=== PATIENT | male | born 1935 | race Caucasian/White ===

== ENCOUNTER → 2017-03-25 | Outpatient (CLI) | payer MEDICARE, OTHER ==
[2017-03-28 00:06] LABS: IgG P18 AB Absent (.); IgG P23 AB Absent (.); IgG P28 AB Absent (.); IgG P30 AB Absent (.); IgG P41 AB Present (.); IgG P45 AB Absent (.); IgG P58 AB Present (.); IgG P66 AB Present (.); IgG P93 AB Absent (.); IgM P39 AB Absent (.); IgM P41 AB Absent (.)
== END ==
LOC: M WUC 10:59
PROVIDERS: ATTEND Nurse Practitioner Family
DX: A69.20 Lyme disease, unspecified (principal)

== ENCOUNTER → 2018-04-22 | Outpatient (REF) | payer MEDICARE, OTHER ==
[2018-04-24 00:06] LABS: Lyme Disease IgG/IgM Antibodie <0.91 ISR (0.00-0.90); Lyme Disease IgM Ab Quantitati <0.80 index (0.00-0.79)
== END ==
LOC: M LAB REF 13:54
DX: M25.569 Pain in unspecified knee (principal)

== ENCOUNTER → 2018-04-22 | Outpatient (CLI) | payer MEDICARE, OTHER | LOC: M RAD 09:26 | DX: M16.10 Unilateral primary osteoarthritis, unspecified hip (principal); M17.0 Bilateral primary osteoarthritis of knee; M25.761 Osteophyte, right knee; M25.762 Osteophyte, left knee; M25.551 Pain in right hip; M25.552 Pain in left hip; M25.561 Pain in right knee; M25.562 Pain in left knee | CPT/HCPCS: 73564 ==

== ENCOUNTER → 2018-08-10 | Outpatient (CLI) | payer MEDICARE, OTHER ==
--- NOTE | 2018-08-10 11:36 | REP ---
Chest two views HISTORY: Pneumonia Comparison: 07/07/2016 An increase in interstitial markings is present in the lungs consistent with chronic interstitial fibrosis. Patchy density is present in the right lower lobe consistent with atelectasis or infiltrate. The heart is normal in size. The pulmonary vasculature is normal in appearance. The bony structure is intact. IMPRESSION: 1. Chronic interstitial fibrosis. 2. Right lower lobe atelectasis or infiltrate. Electronically Signed by Angel Luis Castellanos MD 08/10/2018 11:28 A
== END ==
LOC: M WUC 11:08
PROVIDERS: ATTEND Nurse Practitioner Family
DX: J84.10 Pulmonary fibrosis, unspecified (principal); J98.11 Atelectasis

== ENCOUNTER → 2018-09-14 | Outpatient (CLI) | payer MEDICARE, OTHER ==
--- NOTE | 2018-09-14 10:53 | REP ---
Chest two views HISTORY: Pneumonia Comparison: 08/10/2018 An increase in interstitial markings is present in the lungs consistent with chronic interstitial fibrosis. Patchy density is present in the right lower lobe consistent with an infiltrate that appears unchanged compared to the previous study. The heart is normal in size. The pulmonary vasculature is normal in appearance. The bony structure is intact. IMPRESSION: 1. Chronic interstitial fibrosis. 2. Right lower lobe infiltrate unchanged compared to the previous study. Electronically Signed by Angel Luis Castellanos MD 09/14/2018 10:44 A
== END ==
LOC: M WUC 10:22
PROVIDERS: ATTEND Nurse Practitioner Family
DX: J18.9 Pneumonia, unspecified organism (principal)

== ENCOUNTER → 2018-10-25 | Outpatient (REF) | payer MEDICARE, OTHER ==
[2018-10-25 13:31] LABS: BASO # 0.1 10^3/uL (0.0-0.2); BASO % 0.9 % (0.0-1.0); EOS # 0.3 10^3/uL (0.0-0.50); EOS % 4.7 % (0.0-3.0); HEMATOCRIT 46.8 % (42.0-52.0); HEMOGLOBIN 15.5 g/dl (13.5-17.5); LYMPH # 1.4 10^3/uL (1.5-4.5); LYMPH % 21.1 % (24.0-44.0); MEAN CORPUSCULAR HEMOGLOBIN 33.8 pg (27.0-33.0); MEAN CORPUSCULAR HGB CONC 33.1 g/dl (32.0-36.5); MEAN CORPUSCULAR VOLUME 102.2 fl (80.0-96.0); MONO # 0.6 10^3/uL (0.0-0.8); MONO % 9.2 % (0.0-5.0); NEUTROPHILS # 4.4 10^3/uL (1.8-7.7); NEUTROPHILS % 63.8 % (36.0-66.0); PLATELET COUNT, AUTOMATED 231 10^3/uL (150-450); RED BLOOD COUNT 4.58 10^6/uL (4.30-6.10); WHITE BLOOD COUNT 6.8 10^3/uL (4.0-10.0)
[2018-10-25 13:52] LABS: C REACTIVE PROTEIN QUANTITATIV < 0.30 MG/DL (0.00-0.30); RHEUMATOID FACTOR QUANT < 10.0 IU/ML (<15.0)
[2018-10-25 15:06] LABS: ERYTHROCYTE SEDIMENTATION RATE 9 mm/hr (0-20)
[2018-10-28 00:06] LABS: ANCA-ATYPICAL <1:20 titer (Neg:<1:20); ANTI-GLOMERULAR BASEMENT MEMB 6 units (0-20); ANTINUCLEAR ANTIBODIES DIRECT Negative (Negative); CHLAMYDIA PNEUMONIAE IgM <1:10 (Neg:<1:10); CYTOPLASMIC NEUTROP AB ANCA-C <1:20 titer (Neg:<1:20); MYCOPLASMA PNEUMONIAE IgG 147 U/mL (0-99); MYCOPLASMA PNEUMONIAE IgM <770 U/mL (0-769); PERINUCLEAR AB ANCA-P <1:20 titer (Neg:<1:20); SJOGREN'S ANTI SS-A <0.2 AI (0.0-0.9); SJOGREN'S ANTI SS-B <0.2 AI (0.0-0.9)
== END ==
LOC: M LAB REF 12:42
PROVIDERS: ATTEND Internal Medicine Pulmonary Disease
DX: R91.8 Other nonspecific abnormal finding of lung field (principal)

== ENCOUNTER → 2018-11-22 | Outpatient (CLI) | payer MEDICARE, OTHER ==
[2018-11-22 13:28] LABS: BLOOD UREA NITROGEN 24 MG/DL (7-18); CREATININE FOR GFR 1.21 MG/DL (0.70-1.30); GLOMERULAR FILTRATION RATE > 60.0 (>35)
== END ==
LOC: M SMT 09:20
PROVIDERS: ATTEND Internal Medicine Pulmonary Disease
DX: J15.7 Pneumonia due to Mycoplasma pneumoniae (principal)

== ENCOUNTER 2018-12-16 01:18 | Emergency (ER) | payer MEDICARE, OTHER ==
[~2018-12-16] VITALS: Ht 177.8 cm; Wt 94.5 kg
[2018-12-16] MEDS ORDERED: ONDANSETRON 4MG/2ML VIAL (J2405) IV ONE ×2 (01:45→05:30)
[2018-12-16] MEDS ORDERED: ASPIRIN 81 MG CHEW TABLET PO ONE (02:15)
[2018-12-16 02:27] LABS: BASO # 0.1 10^3/uL (0.0-0.2); BASO % 0.7 % (0.0-1.0); EOS # 0.5 10^3/uL (0.0-0.50); EOS % 6.1 % (0.0-3.0); HEMATOCRIT 43.3 % (42.0-52.0); HEMOGLOBIN 14.5 g/dl (13.5-17.5); LYMPH # 1.4 10^3/uL (1.5-4.5); LYMPH % 18.7 % (24.0-44.0); MEAN CORPUSCULAR HEMOGLOBIN 34.3 pg (27.0-33.0); MEAN CORPUSCULAR HGB CONC 33.5 g/dl (32.0-36.5); MEAN CORPUSCULAR VOLUME 102.4 fl (80.0-96.0); MONO # 0.7 10^3/uL (0.0-0.8); MONO % 9.3 % (0.0-5.0); NEUTROPHILS # 4.8 10^3/uL (1.8-7.7); NEUTROPHILS % 64.9 % (36.0-66.0); PLATELET COUNT, AUTOMATED 188 10^3/uL (150-450); RED BLOOD COUNT 4.23 10^6/uL (4.30-6.10); WHITE BLOOD COUNT 7.4 10^3/uL (4.0-10.0)
[2018-12-16 02:53] LABS: ALBUMIN 3.3 GM/DL (3.2-5.2); ALT/SGPT 23 U/L (12-78); BILIRUBIN,DIRECT < 0.1 MG/DL (0.0-0.2); BILIRUBIN,TOTAL 0.4 MG/DL (0.2-1.0); BLOOD UREA NITROGEN 28 MG/DL (7-18); CALCIUM LEVEL 8.5 MG/DL (8.8-10.2); CARBON DIOXIDE LEVEL 25 MEQ/L (21-32); CHLORIDE LEVEL 106 MEQ/L (98-107); CPK CREATINE PHOSPHOKINASE 174 U/L (39-308); CREATININE FOR GFR 1.24 MG/DL (0.70-1.30); GLOMERULAR FILTRATION RATE 59.3 (>35); GLUCOSE, FASTING 110 MG/DL (70-100); LIPASE 100 U/L (73-393); MB/CK RELATIVE INDEX 2.82 (< OR =4); POTASSIUM SERUM 4.1 MEQ/L (3.5-5.1); SODIUM LEVEL 140 MEQ/L (136-145); TOTAL PROTEIN 7.1 GM/DL (6.4-8.2); TROPONIN I < 0.02 NG/ML (< 0.10)
--- NOTE | 2018-12-16 03:25 | REPVR ---
EXAM: CT Head Without Contrast EXAM DATE/TIME: 12/16/18 (1:44am) CLINICAL HISTORY: 83 year old male with dizziness TECHNIQUE: Imaging protocol: Axial computed tomography images of the head without contrast. Radiation optimization: All CT scans at this facility use at least one of these dose optimization techniques: automated exposure control; mA and/or kV adjustment per patient size (includes targeted exams where dose is matched to clinical indication); or iterative reconstruction. COMPARISON: No relevant prior studies available FINDINGS: Brain: No acute hemorrhage. No cerebral edema. Age-appropriate atrophic changes are noted. Periventricular and subcortical areas of low attenuation, compatible with small vessel microischemic changes. Ventricles: Normal. No ventriculomegaly. Bones/joints: Unremarkable. No acute fracture. Sinuses: Visualized sinuses are unremarkable. No fluid levels. Mastoid air cells: Visualized mastoid air cells are well aerated. No mastoid effusion. Soft tissues: Unremarkable. IMPRESSION: No acute intracranial pathology is appreciated. Chronic atrophic and microischemic changes are noted. Electronically signed by: Radha Reno On 12/16/2018 03:25:19 AM
--- NOTE | 2018-12-16 07:15 | REPVR ---
EXAM: MR Head Without Contrast EXAM DATE/TIME: 12/16/2018 6:12 AM CLINICAL HISTORY: 83 years old, male; Signs and symptoms; Dizziness and other: Headache and difficulty breathing; Patient HX: PT states around midnight had all of a sudden headache with dizziness and difficulty breathing; Additional info: Cerebellar CVA TECHNIQUE: Imaging protocol: MR of the head without contrast. COMPARISON: CT Head without contrast 12/16/2018 1:54 AM FINDINGS: Brain: There is moderate high signal abnormality in the periventricular white matter and centrum semiovale, best seen on the flair images. These changes are nonspecific but likely represent chronic small vessel ischemic change. Ventricles: Normal. No ventriculomegaly. Bones/joints: Unremarkable. Soft tissues: Normal. Sinuses: Normal as visualized. No acute sinusitis. Mastoid air cells: Normal as visualized. No mastoid effusion. Orbits: Unremarkable. IMPRESSION: No acute intracranial abnormality identified. Please refer to incidental findings in body of report. Electronically signed by: Willem Peck On 12/16/2018 07:15:15 AM
--- NOTE | 2018-12-16 07:17 | REPVR ---
EXAM: MR Angiogram Head Without Contrast, Arteries EXAM DATE/TIME: 12/16/2018 6:12 AM CLINICAL HISTORY: 83 years old, male; Signs and symptoms; Dizziness and giddiness and headache and other: Difficulty breathing; Patient HX: PT states around midnight had all of a sudden headache with dizziness and difficulty breathing; Additional info: Cerebellar CVA TECHNIQUE: Imaging protocol: MR angiogram head without contrast. Exam focused on the arteries. 3D rendering: MIP reconstructed images were created and reviewed. COMPARISON: CT Head without contrast 12/16/2018 1:54 AM FINDINGS: Right internal carotid artery: Unremarkable. Intracranial segment is patent with no significant stenosis. No aneurysm. Right anterior cerebral artery: Unremarkable. No occlusion or significant stenosis. No aneurysm. Right middle cerebral artery: Unremarkable. No occlusion or significant stenosis. No aneurysm. Right posterior cerebral artery: Unremarkable. No occlusion or significant stenosis. No aneurysm. Right vertebral artery: Unremarkable. No occlusion or significant stenosis. No aneurysm. Left internal carotid artery: Unremarkable. Intracranial segment is patent with no significant stenosis. No aneurysm. Left anterior cerebral artery: Unremarkable. No occlusion or significant stenosis. No aneurysm. Left middle cerebral artery: Unremarkable. No occlusion or significant stenosis. No aneurysm. Left posterior cerebral artery: Unremarkable. No occlusion or significant stenosis. No aneurysm. Left vertebral artery: The patient is left vertebral artery dominant. Basilar artery: Unremarkable. No occlusion or significant stenosis. No aneurysm. IMPRESSION: No acute abnormality is identified. Please review incidental findings contained in body of report. Electronically signed by: Willem Peck On 12/16/2018 07:17:27 AM
--- NOTE | 2018-12-16 07:55 | REP ---
Clinical: Chest pain. Comparison: 09/14/2018. Findings: Diffuse bilateral mid to lower lobe infiltrates are suggested. Small associated pleural effusion cannot be excluded. No pneumothorax. Underlying cardiomegaly and chronic changes again noted. Impression: Multifocal infiltrates suggest pneumonia. Electronically Signed by Sanjay Grider MD 12/16/2018 07:47 A
[2018-12-16 09:09] LABS: MB/CK RELATIVE INDEX 2.93 (< OR =4); TROPONIN I 0.02 NG/ML (< 0.10)
[2018-12-16 09:53] VITALS: BP 112/62; O2SAT 91
--- NOTE | 2018-12-16 13:39 | ED PDOC ---
Post-Departure Follow-Up dr case faxed formal report of cxr for fu rileyg Mayank Cabello MD December 16, 2018 13:39
--- NOTE | 2018-12-16 20:20 | ECGEPIP ---
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
--- NOTE | 2018-12-16 20:44 | ECGEPIP ---
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
== END 2018-12-16 10:04 | disposition home or self-care (01) ==
LOC: M ED 01:18
DX: R42 Dizziness and giddiness (principal); I10 Essential (primary) hypertension; G47.33 Obstructive sleep apnea (adult) (pediatric); C61 Malignant neoplasm of prostate; Z88.2 Allergy status to sulfonamides; Z88.8 Allergy status to other drugs, medicaments and biological substances
CPT/HCPCS: 70450; 70544; 70551; 71045; 80048; 80076; 82550; 82553; 83690; 84484; 85025; 93005; 93041; 94760; 96374; 96375; 99285; J2405

== ENCOUNTER → 2019-02-01 | Outpatient (CLI) | payer MEDICARE, OTHER ==
--- NOTE | 2019-02-01 17:52 | REP ---
Chest x-ray: Two views. History: Bronchiectasis. Comparison chest x-ray: December 16, 2018. Findings: There is coarse linear fibrosis in the right perihilar region. The lungs are exposed at a lower level of inspiration, unchanged. There is diffuse interstitial fibrosis pattern in the lung gonzales bilaterally. No other focal pulmonary opacity is seen. The pleural angles are sharp. Heart and mediastinal contours are unchanged. Impression: Diffuse interstitial fibrosis pattern. Coarse linear fibrosis right mid lung zone. No focal infiltrate seen. Electronically Signed by Bimal Cunha MD 02/01/2019 07:29 P
== END ==
LOC: M SMT 09:43
PROVIDERS: ATTEND Internal Medicine Pulmonary Disease
DX: J47.9 Bronchiectasis, uncomplicated (principal)

== ENCOUNTER → 2019-06-27 | Outpatient (CLI) | payer MEDICARE, OTHER ==
[~2019-06-27] MED LIST: ALFU10TA2 PO; AVAP150T31 PO; ISOVUE-370 76% 100ML VIAL (Q9967) As Ordered ONE; NAPR250T4 PO
--- NOTE | 2019-06-27 16:23 | REP ---
CT neck soft tissues: 06/27/2019. Indication: Neck mass. Comparison: None. Technique: Axial CT images of the neck soft tissues were obtained following the administration of 75 ml IV Isovue 370. Coronal and sagittal reconstructions were provided. Findings: The right lingular tonsil is mildly prominent without focal abnormal enhancement. No additional abnormal solid soft tissue masses are present. There is no abnormal fluid collection within the neck soft tissues. There is no evidence of cervical lymphadenopathy. Carotid atherosclerotic disease is present without high-grade stenosis detected. The visualized lungs are clear. Impression: Mildly prominent right lingular tonsil for which direct inspection correlation is recommended. Otherwise, no abnormal solid soft tissue mass, abnormal fluid collection or cervical lymphadenopathy. Electronically Signed by Amadou Ruiz DO 06/27/2019 04:14 P
== END ==
LOC: M RAD 14:21
PROVIDERS: ATTEND Otolaryngology
DX: D38.0 Neoplasm of uncertain behavior of larynx (principal)
CPT/HCPCS: 70491; Q9967

== ENCOUNTER 2019-06-28 08:10 | Day surgery (SDC) | payer MEDICARE, OTHER ==
[2019-06-28] VITALS (8 sets, daily range): BP systolic 119–132; BP diastolic 73–79
[~2019-06-28] VITALS: Ht 177.8 cm; Wt 93.8 kg
[~2019-06-28 08:10] MED LIST changes: -ALFU10TA2 PO; +ALFU10TA3 PO; -ISOVUE-370 76% 100ML VIAL (Q9967) As Ordered ONE; +LR 1,000 ML IV ONE; +dexameTHASONE 4 MG/ML 1ML VIAL (J1100) IV ONE
[2019-06-28] MEDS ORDERED: propofoL 200 MG/20 ML VIAL As Ordered ONE ×2 (09:43→09:52)
[2019-06-28] MEDS ORDERED: ROCURONIUM BROMIDE 50 MG/5 ML VIAL As Ordered ONE (09:43)
[2019-06-28] MEDS ORDERED: LIDOCAINE 2% INJ 100 MG/5 ML SDV (FOR ANES.) As Ordered ONE (09:43)
[2019-06-28] MEDS ORDERED: ONDANSETRON 4MG/2ML VIAL (J2405) As Ordered ONE (09:44)
[2019-06-28] MEDS ORDERED: dexameTHASONE 4 MG/ML 1ML VIAL (J1100) As Ordered ONE (09:44)
[2019-06-28] MEDS ORDERED: fentaNYL 100 MCG/2 ML INJECTION (J3010) As Ordered ONE (09:44)
[2019-06-28] MEDS ORDERED: SUGAMMADEX SODIUM 500 MG/5 ML VIAL (BRIDION) As Ordered ONE (09:52)
[2019-06-28] MEDS ORDERED: METHYLENE BLUE 0.5% (5MG/ML) 10 ML AMP (PROVAYBLUE)(Q9968 PER 1MG) As Ordered ONE (10:24)
[2019-06-28] MEDS ORDERED: LIDOCAINE W/EPINEPHRINE 1% 20ML VIAL As Ordered ONE (10:25)
[2019-06-28] MEDS ORDERED: OXYMETAZOLINE NASAL SPRAY (AFRIN) As Ordered ONE (10:25)
[2019-06-28] MEDS ORDERED: GLYCOPYRROLATE INJ 0.2 MG/ML 2 ML VIAL As Ordered ONE (11:01)
[2019-06-28] MEDS ORDERED: ESMOLOL INJ 100MG/10ML VIAL As Ordered ONE (11:10)
[2019-06-28] MEDS ORDERED: RACEPINEPHrine 2.25 % UD INHA As Ordered ONE (11:37)
[2019-06-28] MEDS ORDERED: LR 1,000 ML IV SCH ×2 (12:00→18:00)
[2019-06-28] MEDS ORDERED: oxyCODONE 5MG TAB PO PRN (12:00)
[2019-06-28] MEDS ORDERED: fentaNYL 100 MCG/2 ML INJECTION (J3010) IV PRN (12:00)
[2019-06-28] MEDS ORDERED: ONDANSETRON 4MG/2ML VIAL (J2405) IV PRN (12:00)
[2019-06-28] MEDS ORDERED: RACEPINEPHrine 2.25 % UD INHA INH ONE (12:30)
--- NOTE | 2019-06-28 16:10 | HPEPDOC ---
General Date of Admission 06/28/19 Date of Service: Jun 28, 2019 Chief Complaint The patient is a 84-year-old male admitted with a reason for visit of Left Vocal Cord Lesion. Source: Patient Severity: Mild Associated Symptoms: Shortness of breath History of Present Illness Patient is 84 years old male with past medical history of hypertension, mycoplasma pneumonia, lung fibrosis, prostate cancer presented hospital for vocal cord biopsy due to discovered nodule. After procedure which was done under anesthesia patient developed acute hypoxemic respiratory failure with oxygen saturation in the middle of the 70s. Patient received oxygen via nasal cannula with improvement saturation to 90%. Patient denied fever, chills, nausea, vomiting, palpitations, diarrhea or dysuria. Of note patient was recently diagnosed with lung fibrosis, he is not oxygen dependent. Home Medications Scheduled Alfuzosin HCl (Alfuzosin HCl ER) 10 Mg Tab.er.24h, 1 TAB PO DAILY, (Reported) Irbesartan (Avapro) 150 Mg Tablet, 1 TAB PO DAILY, (Reported) Scheduled PRN Naproxen (Naproxen) 250 Mg Tablet, 1 TAB PO BIDP PRN for pain, (Reported) Allergies Coded Allergies: Sulfa (Sulfonamide Antibiotics) (Verified Allergy, Unknown, 10/21/18) doxycycline (Verified Allergy, Unknown, resp distress, 06/22/19) lisinopril (Verified Allergy, Unknown, 10/21/18) metoprolol (Verified Allergy, Unknown, 10/21/18) tamsulosin (Verified Allergy, Unknown, 10/21/18) Past Medical History Medical History hypertension, mycoplasma pneumonia, lung fibrosis, prostate cancer Family History I personally reviewed family history and found not pertinent Social History * Smoker: Denies Alcohol: Denies Drugs: denies A-FIB/CHADSVASC A-FIB History Current/History of A-Fib/PAF?: No Current PO Anticoag Therapy: No Review of Systems Constitutional: Denies: Chills, Fever Eyes: Denies: Pain, Vision change ENT: Denies: Head Aches Skin: Denies: Rash, Lesions Pulmonary: Reports: Dyspnea Cardiovascular: Denies: Chest Pain, Palpitations Gastrointestinal: Denies: Nausea, Vomiting Genitourinary: Denies: Dysuria, Frequency Hematologic: Denies: Bruising, Bleeding Excessively Endocrine: Denies: Polydipsia Musculoskeletal: Denies: Neck Pain, Back Pain Neurological: Denies: Weakness Psych: Reports: Mood Normal Physical Examination General Exam: Positive: Alert, Cooperative Eye Exam: Positive: PERRLA ENT Exam: Positive: Atraumatic Neck Exam: Positive: Supple Chest Exam: Positive: Clear to auscultation Heart Exam: Positive: Rate Normal Telemetry: Positive: No significant arrhythmia Abdomen Exam: Positive: Normal bowel sounds Extremity Exam: Negative: Clubbing, Cyanosis Skin Exam: Positive: Nl turgor and temperature Neuro Exam: Positive: Strength at 5/5 X4 ext, Cranial Nerves 3-12 NL Psych Exam: Positive: Mental status NL Vital Signs Vital Signs Date Time Temp Pulse Resp B/P (MAP) Pulse Ox O2 Delivery O2 Flow Rate FiO2 06/28/19 15:30 97 68 16 109/59 (76) 97 Nasal Cannula 06/28/19 12:18 10 Assessment/Plan Patient is 84 years old male with past medical history of hypertension, mycoplasma pneumonia, lung fibrosis, prostate cancer presented hospital for vocal cord biopsy due to discovered nodule. After procedure which was done under anesthesia patient developed acute hypoxemic respiratory failure with oxygen saturation in the middle of the 70s. Patient received oxygen via nasal cannula with improvement saturation to 90%. Problems (1) Acute hypoxemic respiratory failure Status: Acute Problem Text: Patient developed acute respiratory hypoxemic failure secondary to recent anesthesia due to vocal cord biopsy Patient has underlying lung fibrosis, but he is not oxygen dependent Chest x-ray, blood gas Oxygen via nasal cannula to keep sats range> 92 % Plan / VTE VTE Prophylaxis Ordered?: Yes MANUEL BOUDREAUX DO Jun 28, 2019 16:10
[2019-06-28 16:42] LABS: HEMATOCRIT 43.3 % (42.0-52.0); HEMOGLOBIN 14.3 g/dl (13.5-17.5); MEAN CORPUSCULAR HEMOGLOBIN 33.9 pg (27.0-33.0); MEAN CORPUSCULAR VOLUME 102.6 fl (80.0-96.0); PLATELET COUNT, AUTOMATED 193 10^3/uL (150-450); RED BLOOD COUNT 4.22 10^6/uL (4.30-6.10); WHITE BLOOD COUNT 4.5 10^3/uL (4.0-10.0)
[2019-06-28 17:07] LABS: CREATININE FOR GFR 1.33 MG/DL (0.70-1.30); GLOMERULAR FILTRATION RATE 54.5 (>35); POTASSIUM SERUM 4.1 MEQ/L (3.5-5.1)
--- NOTE | 2019-06-28 17:27 | REP ---
Clinical: Hypoxia. Technique: PA and lateral. Comparison: 02/01/2019. Findings: Cardiomegaly with chronic changes and diffuse superimposed interstitial and alveolar infiltrates along with cephalization and bibasilar atelectasis. Hilar adenopathy cannot be excluded. Differential diagnosis includes CHF/pulmonary edema as well as underlying pathology including multifocal pneumonia and less likely neoplasm. Impression: Findings likely representing elements of CHF/pulmonary edema although further pathology including multifocal pneumonia and less likely malignancy cannot be excluded. Electronically Signed by Sanjay Grider MD 06/28/2019 05:19 P
[2019-06-28 18:21] LABS: ABG BASE EXCESS -2.5 (-2.0-2.0); ABG HCO3 22.1 MEQ/L (22.0-26.0); ABG O2 SATURATION 95.5 % (95.0-99.0); ABG PARTIAL PRESSURE CO2 38.1 mmHg (35.0-45.0); ABG STANDARD HCO3 22.3 MEQ/L (22.0-26.0); ABG TOTAL CO2 23.3 MEQ/L (23.0-31.0); ABG pH (ARTERIAL) 7.382 UNITS (7.350-7.450)
[2019-06-28] MEDS ORDERED: IRBESARTAN 150 MG TAB PO SCH (21:00)
[2019-06-28] MEDS: HEPARIN SOD (PORCINE) 5000 UNITS/ML VIAL (J1644 PER 1000UNITS) SC SCH (21:02)
[2019-06-28] MEDS ORDERED: ACETAMINOPHEN TAB 650MG DOSE (2X325MG) PO PRN (22:15)
[2019-06-29 02:00] VITALS: BP 129/73
[2019-06-29 06:00] VITALS: BP 124/75
[2019-06-29] MEDS: HEPARIN SOD (PORCINE) 5000 UNITS/ML VIAL (J1644 PER 1000UNITS) SC SCH (09:43)
[2019-06-29 10:00] VITALS: BP 137/62
--- NOTE | 2019-06-29 17:35 | ECGEPIP ---
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
--- NOTE | 2019-06-29 18:06 | DS.PDOC ---
Discharge Summary General Date of Admission 06/28/19 Date of Discharge 06/29/19 Discharge Summary PROCEDURES PERFORMED DURING STAY: [None]. ADMITTING DIAGNOSES: Acute hypoxemic respiratory failure DISCHARGE DIAGNOSES: Acute hypoxemic respiratory failure COMPLICATIONS/CHIEF COMPLAINT: Left Vocal Cord Lesion. HISTORY OF PRESENT ILLNESS: Patient is 84 years old male with past medical history of hypertension, mycoplasma pneumonia, lung fibrosis, prostate cancer presented hospital for vocal cord biopsy due to discovered nodule. After procedure which was done under anesthesia patient developed acute hypoxemic respiratory failure with oxygen saturation in the middle of the 70s. Patient received oxygen via nasal cannula with improvement saturation to 90%. Patient denied fever, chills, nausea, vomiting, palpitations, diarrhea or dysuria. Of note patient was recently diagnosed with lung fibrosis, he is not oxygen dependent. HOSPITAL COURSE: During hospital stay following issue addressed Patient developed acute respiratory hypoxemic failure secondary to recent anesthesia due to vocal cord biopsy Patient has underlying lung fibrosis, but he is not oxygen dependent Patient received treatment with oxygen via nasal cannula to keep sats range> 92 % DISCHARGE MEDICATIONS: Please see below. ALLERGIES: Please see below. PHYSICAL EXAMINATION ON DISCHARGE: VITAL SIGNS: Please see below. General Exam: Positive: Alert, Cooperative Eye Exam: Positive: PERRLA ENT Exam: Positive: Atraumatic Neck Exam: Positive: Supple Chest Exam: Positive: Clear to auscultation Heart Exam: Positive: Rate Normal Telemetry: Positive: No significant arrhythmia Abdomen Exam: Positive: Normal bowel sounds Extremity Exam: Negative: Clubbing, Cyanosis Skin Exam: Positive: Nl turgor and temperature Neuro Exam: Positive: Strength at 5/5 X4 ext, Cranial Nerves 3-12 NL Psych Exam: Positive: Mental status NL LABORATORY DATA: Please see below. PROGNOSIS: Favorable ACTIVITY: [As tolerated]. DIET: Cardiac DISPOSITION: Home ITEMS TO FOLLOWUP ON ON OUTPATIENT: Follow-up with [facility] DISCHARGE CONDITION: [Stable]. TIME SPENT ON DISCHARGE: Greater than 15minutes. Vital Signs/I&Os Vital Signs Date Time Temp Pulse Resp B/P (MAP) Pulse Ox O2 Delivery O2 Flow Rate FiO2 06/29/19 10:00 97.5 63 19 137/62 (87) 95 Room Air 06/29/19 07:30 0.5 I&O- Last 24 Hours up to 6 AM 06/29/19 06:00 Intake Total 2070 ml Output Total 1155 ml Balance 915 ml Discharge Medications Scheduled Alfuzosin HCl (Alfuzosin HCl ER) 10 Mg Tab.er.24h, 1 TAB PO DAILY, (Reported) Irbesartan (Avapro) 150 Mg Tablet, 1 TAB PO DAILY, (Reported) Scheduled PRN Naproxen (Naproxen) 250 Mg Tablet, 1 TAB PO BIDP PRN for pain, (Reported) Allergies Coded Allergies: Sulfa (Sulfonamide Antibiotics) (Verified Allergy, Unknown, 10/21/18) doxycycline (Verified Allergy, Unknown, resp distress, 06/22/19) lisinopril (Verified Allergy, Unknown, 10/21/18) metoprolol (Verified Allergy, Unknown, 10/21/18) tamsulosin (Verified Allergy, Unknown, 10/21/18) MANUEL BOUDREAUX DO Jun 29, 2019 18:06
--- NOTE | 2019-07-24 08:33 | RO ---
DATE OF PROCEDURE: 06/28/2019 PREPROCEDURE DIAGNOSIS: Left vocal cord lesion. POSTPROCEDURE DIAGNOSIS: Left vocal cord lesion. PROCEDURE: Direct suspension microlaryngoscopy with biopsy of the left vocal cord. SURGEON: Dr. Joe King MANUFACTURING TEST TECHNICIAN: ANESTHESIA: General. CLINICAL PREAMBLE: This 84-year-old man presented to the office with disturbance of the voice. 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 Management options including direct suspension microlaryngoscopy with biopsy of the left vocal cord lesion have been discussed. The patient understood and consented to the procedure. DESCRIPTION OF OPERATION: Patient was identified in preoperative holding and brought to the operating room in stable condition. In supine position on the operating room table, the patient received general anesthesia followed by oral tracheal intubation without incident. The patient was prepped and draped in the usual fashion for the procedure. Bimanual palpation of the oral cavity, oropharynx, oral tongue base of tongue, posterior pharyngeal wall showed no evidence of discrete nodules. The upper alveolus was protected and Dedo laryngoscope was introduced. Visualization of the mucosa of the oral cavity, oropharynx, supraglottis, pyriform sinuses and posterior pharyngeal wall show no evidence of mucosal lesion. The examination of the glottis revealed leukoplakia lesion over the anterior one-third of the left vocal cord. The Dedo laryngoscope was then suspended at the Guillen stand. Biopsies were obtained from the left anterior one-third of the vocal cord. Hemostasis was achieved by placing cottonoid pledgets soaked in Afrin solution over the left vocal cord area. Complete hemostasis was observed at the end of the case. Sponge and instrument counts were correct. No complication was encountered. Estimated blood loss was less than 5 mL. General anesthesia was then reversed and patient extubated and brought to recovery room in stable condition.
[2019-08-18] MEDS ORDERED: NYSTOI TOP (07:58)
== END 2019-06-29 12:34 | disposition home or self-care (01) ==
LOC: M SDC 08:10 → M MSPAV 08:11 → M SDC 17:10 → M MSPAV 17:10 → M SDC 06-29 12:34
PROVIDERS: ADMIT Internal Medicine; ATTEND Otolaryngology
DX: D02.0 Carcinoma in situ of larynx (principal); I10 Essential (primary) hypertension; J84.10 Pulmonary fibrosis, unspecified; J96.01 Acute respiratory failure with hypoxia; J44.9 Chronic obstructive pulmonary disease, unspecified; G47.30 Sleep apnea, unspecified; Z85.46 Personal history of malignant neoplasm of prostate; Z92.3 Personal history of irradiation; Z79.899 Other long term (current) drug therapy; Z88.2 Allergy status to sulfonamides; Z88.8 Allergy status to other drugs, medicaments and biological substances
CPT/HCPCS: 31536; 71046; 80048; 82803; 85027; 88305; 93005; 96372; G0378; J1100; J1644; J2405; J3010; Q9968

== ENCOUNTER → 2019-08-03 | Outpatient (REF) | payer MEDICARE, OTHER ==
[~2019-08-03] MED LIST changes: -LR 1,000 ML IV ONE; -dexameTHASONE 4 MG/ML 1ML VIAL (J1100) IV ONE
[2019-08-03 18:06] LABS: FOLATE 5.9 NG/ML
== END ==
LOC: M LAB REF 17:18
PROVIDERS: ATTEND Family Medicine
DX: R71.8 Other abnormality of red blood cells (principal)

== ENCOUNTER 2019-09-01 08:49 | Day surgery (SDC) | payer MEDICARE, OTHER ==
[~2019-09-01] VITALS: Ht 179.1 cm; Wt 93.9 kg
[~2019-09-01 08:49] MED LIST changes: +LIDOCAINE 1% MDV 20ML VIAL SQ PRN; +LR 1,000 ML IV ONE; +NYSTOI TOP; +dexameTHASONE 4 MG/ML 1ML VIAL (J1100) IV ONE
[2019-09-01] MEDS ORDERED: ALBUTEROL SULFATE 2.5 MG/0.5 ML INH NEB SOLN As Ordered ONE (11:21)
[2019-09-01] MEDS ORDERED: propofoL 200 MG/20 ML VIAL As Ordered ONE (11:22)
[2019-09-01] MEDS ORDERED: ONDANSETRON 4MG/2ML VIAL (J2405) As Ordered ONE (11:22)
[2019-09-01] MEDS ORDERED: dexameTHASONE 4 MG/ML 1ML VIAL (J1100) As Ordered ONE (11:22)
[2019-09-01] MEDS ORDERED: ROCURONIUM BROMIDE 50 MG/5 ML VIAL As Ordered ONE (11:22)
[2019-09-01] MEDS ORDERED: LIDOCAINE 2% INJ 100 MG/5 ML SDV (FOR ANES.) As Ordered ONE (11:22)
[2019-09-01] MEDS ORDERED: ALBUTEROL SULFATE 2.5 MG/0.5 ML INH NEB SOLN INH ONE (11:30)
[2019-09-01] MEDS ORDERED: ACETAMINOPHEN 1000MG 100ML IV BTL (OFIRMEV) (J0131 PER 10MG) As Ordered ONE (11:30)
[2019-09-01] MEDS ORDERED: LEVALBUTEROL 1.25 MG/0.5 ML CONCENTRATE NEB As Ordered ONE (11:45)
[2019-09-01] MEDS ORDERED: LEVALBUTEROL 1.25 MG/0.5 ML CONCENTRATE NEB INH ONE (12:00)
[2019-09-01] MEDS ORDERED: METHYLENE BLUE 0.5% (5MG/ML) 10 ML AMP (PROVAYBLUE)(Q9968 PER 1MG) As Ordered ONE (12:29)
[2019-09-01] MEDS ORDERED: LIDOCAINE W/EPINEPHRINE 1% 20ML VIAL As Ordered ONE (12:29)
[2019-09-01] MEDS ORDERED: OXYMETAZOLINE NASAL SPRAY (AFRIN) As Ordered ONE (12:30)
[2019-09-01] MEDS ORDERED: fentaNYL 100 MCG/2 ML INJECTION (J3010) As Ordered ONE (12:35)
[2019-09-01] MEDS ORDERED: PHENYLephrine HCL 500 MCG/5 ML (100MCG/ML) SYRINGE (J2370) As Ordered ONE (15:50)
[2019-09-01] MEDS ORDERED: SUGAMMADEX SODIUM 500 MG/5 ML VIAL (BRIDION) As Ordered ONE (15:58)
[2019-09-01] MEDS ORDERED: ESMOLOL INJ 100MG/10ML VIAL As Ordered ONE (16:13)
[2019-09-01] MEDS ORDERED: LR 1,000 ML IV SCH ×2 (17:00→18:01)
[2019-09-01] MEDS ORDERED: fentaNYL 100 MCG/2 ML INJECTION (J3010) IV PRN (17:00)
[2019-09-01] MEDS ORDERED: LEVALBUTEROL 1.25 MG/0.5 ML CONCENTRATE NEB INH SCH (17:30)
[2019-09-01 18:50] VITALS: BP 121/72
--- NOTE | 2019-09-08 08:28 | RO ---
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 PROCEDURE: Direct examination and microlaryngoscopy with biopsy of the left vocal cord and the CO2 laser ablation of the left vocal cord. SURGEON: Dr. Joe King. TAILER IN: ANESTHESIA: General. CLINICAL PREAMBLE: This 84-year-old man presented to the office with a history of dysphonia. Biopsy of the left vocal cord revealed carcinoma in situ over the anterior under the vocal cord. Management options including direct suspension laryngoscopy with repeat biopsy as well as CO2 laser ablation of the left vocal cord have been discussed. The patient understood and consented to the procedure. DESCRIPTION OF PROCEDURE: Patient was identified in pre-holding and brought to the operating room in stable condition. In supine position on the operating room table, patient received general anesthesia followed by orotracheal intubation with laser inside of endotracheal tube. The patient was prepped and draped in the usual fashion for the procedure. The Dedo-Serenity laryngoscope was infused and suspended on Guillen stand to allow visualization of the true vocal cords. The left vocal cord was clearly visualized and the biopsy was obtained over the anterior one-third of the left vocal cord. At this time the endotracheal tube cuff was protected with a wet cottonoid pledget. The entire head and neck region of the patient was covered with a wet towel. At this time, using the Omni Laser set at 5 tariq continuous mode, the left vocal cord was ablated. Hemostasis was observed throughout the entire case. At the end of the procedure, sponge and instrument counts were correct. No complication was encountered. Estimated blood loss was less than 1 mL. General anesthesia was reversed and the patient was extubated and brought to the recovery room in stable condition.
== END 2019-09-01 19:00 | disposition home or self-care (01) ==
LOC: M SDC 08:49
PROVIDERS: ATTEND Otolaryngology
DX: D02.0 Carcinoma in situ of larynx (principal); R49.0 Dysphonia; I10 Essential (primary) hypertension; J84.10 Pulmonary fibrosis, unspecified; G47.30 Sleep apnea, unspecified; Z88.1 Allergy status to other antibiotic agents; Z88.2 Allergy status to sulfonamides; Z88.8 Allergy status to other drugs, medicaments and biological substances; Z79.899 Other long term (current) drug therapy; Z85.46 Personal history of malignant neoplasm of prostate
CPT/HCPCS: 31536; 31599; 88305; J0131; J1100; J2370; J2405; J3010; Q9968

== ENCOUNTER → 2020-10-29 | Outpatient (CLI) | payer MEDICARE, OTHER ==
[~2020-10-29] MED LIST changes: -LIDOCAINE 1% MDV 20ML VIAL SQ PRN; -LR 1,000 ML IV ONE; +NAPR-849 PO; -NAPR250T4 PO; -dexameTHASONE 4 MG/ML 1ML VIAL (J1100) IV ONE
--- NOTE | 2020-10-29 10:30 | REP ---
INDICATION: HYPOXEMIA, PULMONARY FIBROSIS. COMPARISON: PA and lateral chest dated 06/28/2019. TECHNIQUE: Upright PA and lateral chest. FINDINGS: Chronically heavy interstitial markings bilaterally are unchanged compatible with fibrosis. No superimposed acute infiltrates or pleural effusions are identified. Cardiac size is upper normal, unchanged. The kashif, mediastinum, and skeletal structures are unchanged. IMPRESSION: Chronic interstitial fibrosis. No acute cardiopulmonary findings. <Electronically signed by Casa Ware > 10/29/20 1024
== END ==
LOC: M WUC 10:00
PROVIDERS: ATTEND Internal Medicine
DX: R09.02 Hypoxemia (principal); J84.10 Pulmonary fibrosis, unspecified; R42 Dizziness and giddiness

== ENCOUNTER → 2021-01-29 | Outpatient (CLI) | payer MEDICARE, OTHER ==
--- NOTE | 2021-01-29 23:23 | ECHO ---
ECHOCARDIOGRAM DATE OF PROCEDURE: 01/29/2021 Age: 85 Gender: Male Height: 180 cm Weight: 89 kg REFERRING PHYSICIAN: Dr. Tolu Young INDICATION: Shortness of breath MEASUREMENTS: IVS 1.1 cm LV 4.4 cm LVPW 1.0 cm LA 3.4 cm Aorta root 4.5 cm Ascending aorta 3.9 cm IVC 2.6 cm DOPPLER MEASUREMENT Mitral E wave velocity 33 Mitral A wave 58 E prime septal 4.8 E prime lateral 7.5 FINDINGS: This study is of good technical quality, underlying sinus rhythm. Left ventricle is normal size and systolic function with estimated EF around 60%. I do not appreciate any segmental wall motion abnormalities. Right ventricle also appears to have normal size and systolic function. Left atrium is at least mildly enlarged. Right atrium was poorly seen. Aortic valve is minimally sclerotic, but it is tricuspid and has preserved mobility. Mitral and tricuspid valves appear normal. Pulmonic valve was not visualized. No pericardial effusion is noted. Inferior vena cava was poorly seen, but it does appear dilated and has limited collapse with inspiration, indicative of high central venous pressure. Aortic root is dilated at 4.5 cm, ascending aorta is also dilated at 3.9 cm. Aortic arch and abdominal aorta were not well seen. Doppler interrogation of aortic valve reveals no significant stenosis or insufficiency. There is mild mitral and mild tricuspid insufficiency. Calculated pulmonary artery pressure is around 50 mmHg, corresponding to moderate pulmonary hypertension. Mitral inflow pattern and tissue Doppler imaging of the mitral annulus revealed grade 1 diastolic dysfunction. CONCLUSIONS: 1. Study is of acceptable technical quality, underlying sinus rhythm with normal QRS complex. 2. Normal LV size with preserved LV systolic function and grade 1 diastolic dysfunction. 3. Normal RV size and systolic function. 4. Likely elevated central venous pressure and at least moderate pulmonary hypertension. 5. No hemodynamically significant valvular disease. 6. Dilated aortic root (4.5 cm) and visualized segment of ascending aorta (3.9 cm).
== END ==
LOC: M CARPUL 07:15
PROVIDERS: ATTEND Internal Medicine Critical Care Medicine
DX: R06.02 Shortness of breath (principal)

== ENCOUNTER → 2021-03-08 | Outpatient (CLI) | payer MEDICARE, OTHER | LOC: M LABSMTC 12:54 | PROVIDERS: ATTEND Internal Medicine Cardiovascular Disease | DX: I27.20 Pulmonary hypertension, unspecified (principal) ==

== ENCOUNTER → 2021-04-17 | Outpatient (REF) | payer MEDICARE, OTHER | LOC: M LAB REF 16:27 | PROVIDERS: ATTEND Family Medicine | DX: R06.02 Shortness of breath (principal); J84.9 Interstitial pulmonary disease, unspecified; I50.9 Heart failure, unspecified ==

== ENCOUNTER → 2021-05-02 | Outpatient (REF) | payer MEDICARE, OTHER | LOC: M LAB REF 17:15 | PROVIDERS: ATTEND Internal Medicine Nephrology | DX: E83.42 Hypomagnesemia (principal) ==

== ENCOUNTER → 2021-05-06 | Outpatient (REF) | payer MEDICARE, OTHER | LOC: M LAB REF 16:26 | PROVIDERS: ATTEND Family Medicine | DX: I27.20 Pulmonary hypertension, unspecified (principal); R06.89 Other abnormalities of breathing ==

== ENCOUNTER 2021-06-20 15:42 | Inpatient (IN) | payer MEDICARE, OTHER ==
[~2021-06-20] VITALS: Ht 177.8 cm; Wt 85.3 kg
[2021-06-20 16:16] LABS: VENOUS BASE EXCESS -3.1 (-2.0-2.0); VENOUS HCO3 22.1 MEQ/L (23.0-27.0); VENOUS O2 SATURATION 91.3 % (60.0-80.0); VENOUS PARTIAL PRESSURE CO2 40.3 mmHg (38.0-50.0); VENOUS PARTIAL PRESSURE O2 61.8 mmHg (30.0-50.0); VENOUS PH 7.357 UNITS (7.330-7.430); VENOUS STANDARD HCO3 21.7 MEQ/L; VENOUS TOTAL CO2 23.3 MEQ/L (24.0-28.0)
[2021-06-20] MEDS ORDERED: METOCLOPRAMIDE INJ 10MG/2ML VIAL (J2765 PER 1) As Ordered ONE (16:18)
[2021-06-20 16:19] LABS: BASO # 0.1 10^3/uL (0.0-0.2); BASO % 0.7 % (0.0-1.0); EOS # 0.2 10^3/uL (0.0-0.5); EOS % 3.3 % (0.0-3.0); HEMATOCRIT 40.1 % (42.0-52.0); HEMOGLOBIN 13.2 g/dl (13.5-17.5); LYMPH # 1.2 10^3/uL (1.5-5.0); LYMPH % 16.7 % (24.0-44.0); MEAN CORPUSCULAR HEMOGLOBIN 33.9 pg (27.0-33.0); MEAN CORPUSCULAR HGB CONC 32.9 g/dl (32.0-36.5); MEAN CORPUSCULAR VOLUME 103.1 fl (80.0-96.0); MONO # 0.5 10^3/uL (0.0-0.8); MONO % 6.9 % (2.0-8.0); NEUTROPHILS # 5.1 10^3/uL (1.5-8.5); PLATELET COUNT, AUTOMATED 160 10^3/uL (150-450); RED BLOOD COUNT 3.89 10^6/uL (4.30-6.10); WHITE BLOOD COUNT 7.1 10^3/uL (4.0-10.0)
[2021-06-20] MEDS ORDERED: METOCLOPRAMIDE INJ 10MG/2ML VIAL (J2765 PER 1) IV ONE (16:20)
[2021-06-20 16:58] LABS: CALCIUM LEVEL 8.6 MG/DL (8.8-10.2); CREATININE FOR GFR 1.31 MG/DL (0.70-1.30); GLOMERULAR FILTRATION RATE 55.2 (>35); POTASSIUM SERUM 3.7 MEQ/L (3.5-5.1); THYROID STIMULATING HORMONE 4.72 uIU/ML (0.358-3.740)
[2021-06-20] MEDS ORDERED: ISOVUE-370 76% 100ML VIAL As Ordered ONE (17:08)
[2021-06-20 17:09] LABS: RSV AMPLIFICATION NEGATIVE (NEGATIVE)
[2021-06-20] MEDS ORDERED: MAALOX 30 ML SUSP *UDC PO PRN (18:45)
[2021-06-20] MEDS ORDERED: ACETAMINOPHEN TAB 650MG DOSE (2X325MG) PO PRN (18:45)
[2021-06-20 18:54] LABS: INR 1.31; PROTHROMBIN TIME 16.7 SECONDS (12.7-14.5)
[2021-06-20 18:55] LABS: PARTIAL THROMBOPLASTIN TIME 30.8 SECONDS (25.9-37.0)
[2021-06-20 19:14] LABS: FREE T4 0.99 NG/DL (0.76-1.46)
[2021-06-20 20:03] LABS: CK-MB VALUE MASS 4.3 NG/ML (<3.6); MB/CK RELATIVE INDEX 4.94 (< OR =4)
[2021-06-20] MEDS ORDERED: ATOR40TA75 PO (20:16)
[2021-06-20] MEDS ORDERED: PLAV1TAB2 PO (20:16)
[2021-06-20] MEDS ORDERED: LEVA45AE INH (20:16)
[2021-06-20] MEDS ORDERED: ALFU10TA3 PO (20:16)
[2021-06-20] MEDS ORDERED: HOME MED LIST COMPLETE! XX SCH (20:20)
[2021-06-20] MEDS ORDERED: LEVALBUTEROL HFA 45MCG/ACT 15 GM INHALER INH PRN (20:45)
[2021-06-20] MEDS: DOCUSATE SODIUM 100MG CAPSULE PO SCH (21:00)
[2021-06-21 06:04] LABS: HEMATOCRIT 38.7 % (42.0-52.0); HEMOGLOBIN 12.7 g/dl (13.5-17.5); MEAN CORPUSCULAR HGB CONC 32.8 g/dl (32.0-36.5); MEAN CORPUSCULAR VOLUME 103.5 fl (80.0-96.0); PLATELET COUNT, AUTOMATED 154 10^3/uL (150-450); RED BLOOD COUNT 3.74 10^6/uL (4.30-6.10); WHITE BLOOD COUNT 8.7 10^3/uL (4.0-10.0)
[2021-06-21 06:26] LABS: BLOOD UREA NITROGEN 23 MG/DL (7-18); CALCIUM LEVEL 8.9 MG/DL (8.8-10.2); CARBON DIOXIDE LEVEL 27 MEQ/L (21-32); CHLORIDE LEVEL 109 MEQ/L (98-107); CREATININE FOR GFR 1.09 MG/DL (0.70-1.30); GLOMERULAR FILTRATION RATE > 60.0 (>35); GLUCOSE, FASTING 96 MG/DL (70-100); MAGNESIUM LEVEL 1.9 MG/DL (1.8-2.4); POTASSIUM SERUM 4.1 MEQ/L (3.5-5.1); SODIUM LEVEL 142 MEQ/L (136-145)
[2021-06-21 06:32] LABS: CK-MB VALUE MASS 4.3 NG/ML (<3.6); MB/CK RELATIVE INDEX 4.89 (< OR =4)
[2021-06-21] MEDS: DOCUSATE SODIUM 100MG CAPSULE PO SCH ×2 (06:36→07:49)
[2021-06-21] MEDS: CLOPIDOGREL 75 MG TAB PO SCH (07:49)
[2021-06-21] MEDS: ENOXAPARIN 40MG/0.4ML SYRINGE (J1650 PER 10MG) SC SCH (07:50)
[2021-06-21] MEDS: ATORVASTATIN 20 MG TAB PO SCH (07:50)
[2021-06-21] MEDS ORDERED: ENOXAPARIN 30MG/0.3ML SYRINGE (J1650 PER 10MG) SC SCH (09:00)
[2021-06-21 13:43] LABS: CK-MB VALUE MASS 3.9 NG/ML (<3.6); MB/CK RELATIVE INDEX 4.24 (< OR =4)
[2021-06-21 19:46] VITALS: BP 131/83
[2021-06-21 20:00] VITALS: BP 120/85
[2021-06-21] MEDS: ONDANSETRON 4 MG ORAL DISINTEGRATING TAB PO PRN (20:43)
[2021-06-21 21:14] LABS: CK-MB VALUE MASS 3.1 NG/ML (<3.6); MB/CK RELATIVE INDEX 3.01 (< OR =4)
[2021-06-21 22:00] VITALS: BP 133/84
[2021-06-22] VITALS (10 sets, daily range): BP systolic 113–147; BP diastolic 72–95; O2SAT 89–91
[2021-06-22] MEDS: ONDANSETRON 4 MG ORAL DISINTEGRATING TAB PO PRN (03:43)
[2021-06-22] MEDS: CLOPIDOGREL 75 MG TAB PO SCH (08:51)
[2021-06-22] MEDS: ATORVASTATIN 20 MG TAB PO SCH (08:51)
[2021-06-22] MEDS: DOCUSATE SODIUM 100MG CAPSULE PO SCH ×2 (08:51→20:13)
[2021-06-22] MEDS: ENOXAPARIN 40MG/0.4ML SYRINGE (J1650 PER 10MG) SC SCH (08:52)
[2021-06-22] MEDS ORDERED: AZITHROMYCIN INJ 500 MG, VIAL MATE ADAPTER 1 EACH in NS 250 ML IV ONE (09:00)
[2021-06-22] MEDS: cefTRIAXone SOD 2 GM in D5W MINI-BAG PLUS 50 ML IV SCH (09:51)
[2021-06-22] MEDS: methylPREDNISolone 125MG 2ML VIAL IV SCH ×3 (09:51→20:14)
[2021-06-22] MEDS ORDERED: FUROSEMIDE 40MG/4ML VIAL (J1940) IV ONE (10:00)
[2021-06-23] MEDS: methylPREDNISolone 125MG 2ML VIAL IV SCH ×4 (03:14→20:21)
[2021-06-23 06:00] VITALS: BP 106/76
[2021-06-23] MEDS: ENOXAPARIN 40MG/0.4ML SYRINGE (J1650 PER 10MG) SC SCH (09:40)
[2021-06-23] MEDS: cefTRIAXone SOD 2 GM in D5W MINI-BAG PLUS 50 ML IV SCH (09:40)
[2021-06-23] MEDS: CLOPIDOGREL 75 MG TAB PO SCH (09:41)
[2021-06-23] MEDS: ATORVASTATIN 20 MG TAB PO SCH (09:41)
[2021-06-23] MEDS: DOCUSATE SODIUM 100MG CAPSULE PO SCH ×2 (09:41→20:21)
[2021-06-23 11:33] VITALS: O2SAT 96
[2021-06-23 12:00] LABS: BASO % 0.1 % (0.0-1.0); HEMATOCRIT 38.8 % (42.0-52.0); HEMOGLOBIN 12.9 g/dl (13.5-17.5); LYMPH # 0.6 10^3/uL (1.5-5.0); LYMPH % 3.6 % (24.0-44.0); MEAN CORPUSCULAR HEMOGLOBIN 33.7 pg (27.0-33.0); MEAN CORPUSCULAR HGB CONC 33.2 g/dl (32.0-36.5); MEAN CORPUSCULAR VOLUME 101.3 fl (80.0-96.0); MONO # 0.5 10^3/uL (0.0-0.8); NEUTROPHILS # 15.8 10^3/uL (1.5-8.5); NEUTROPHILS % 92.6 % (36.0-66.0); PLATELET COUNT, AUTOMATED 185 10^3/uL (150-450); RED BLOOD COUNT 3.83 10^6/uL (4.30-6.10)
[2021-06-23 12:25] LABS: CK-MB VALUE MASS 2.5 NG/ML (<3.6); MB/CK RELATIVE INDEX 2.94 (< OR =4)
[2021-06-23 12:36] LABS: ERYTHROCYTE SEDIMENTATION RATE 22 mm/hr (0-20)
[2021-06-23 12:38] LABS: BILIRUBIN,TOTAL 0.4 MG/DL (0.2-1.0); C REACTIVE PROTEIN QUANTITATIV 0.36 MG/DL (0.00-0.30); CALCIUM LEVEL 9.2 MG/DL (8.8-10.2); CREATININE FOR GFR 1.43 MG/DL (0.70-1.30); GLOMERULAR FILTRATION RATE 49.9 (>35); POTASSIUM SERUM 3.7 MEQ/L (3.5-5.1)
[2021-06-23 14:00] VITALS: BP 111/67
[2021-06-23 21:29] VITALS: BP 138/72
[2021-06-23 21:48] VITALS: O2SAT 96
[2021-06-24] MEDS: methylPREDNISolone 125MG 2ML VIAL IV SCH ×3 (02:39→14:52)
[2021-06-24 05:20] VITALS: BP 118/84
[2021-06-24] MEDS: cefTRIAXone SOD 2 GM in D5W MINI-BAG PLUS 50 ML IV SCH (08:41)
[2021-06-24] MEDS: MOM 30ML SUSPENSION UDC PO PRN (08:42)
[2021-06-24] MEDS: ATORVASTATIN 20 MG TAB PO SCH (08:42)
[2021-06-24] MEDS: ENOXAPARIN 40MG/0.4ML SYRINGE (J1650 PER 10MG) SC SCH (08:42)
[2021-06-24] MEDS: DOCUSATE SODIUM 100MG CAPSULE PO SCH ×2 (08:43→20:56)
[2021-06-24] MEDS: CLOPIDOGREL 75 MG TAB PO SCH (08:43)
[2021-06-24 14:00] VITALS: BP 109/66
[2021-06-24] MEDS ORDERED: predniSONE 20 MG TAB PO SCH (21:00)
[2021-06-24 21:39] VITALS: O2SAT 92
[2021-06-24 22:00] VITALS: BP 116/76
[2021-06-25 06:00] VITALS: BP 106/69
[2021-06-25] MEDS ORDERED: LevoFLOXacin 750 MG TABLET PO SCH (06:00)
[2021-06-25 07:45] VITALS: BP 130/81
[2021-06-25] MEDS ORDERED: predniSONE 20 MG TAB PO SCH (08:00)
[2021-06-25] MEDS: DOCUSATE SODIUM 100MG CAPSULE PO SCH (08:13)
[2021-06-25] MEDS: MOM 30ML SUSPENSION UDC PO PRN (08:13)
[2021-06-25] MEDS: ENOXAPARIN 40MG/0.4ML SYRINGE (J1650 PER 10MG) SC SCH (08:14)
[2021-06-25] MEDS: CLOPIDOGREL 75 MG TAB PO SCH (08:26)
[2021-06-25] MEDS: ATORVASTATIN 20 MG TAB PO SCH (08:26)
[2021-06-25 09:00] VITALS: O2SAT 95
[2021-06-25] MEDS ORDERED: FUROSEMIDE 20 MG TAB PO SCH (09:00)
[2021-06-25] MEDS ORDERED: LEVO750T13 PO (10:55)
[2021-06-25] MEDS ORDERED: PRED10TA2 PO (10:55)
[2021-06-25] MEDS ORDERED: FURO20TA2 PO (10:55)
[2021-06-26 15:07] LABS: MYCOPLASMA PNEUMONIAE IgG 443 U/mL (0-99); MYCOPLASMA PNEUMONIAE IgM <770 U/mL (0-769)
[2021-06-26 18:08] LABS: BODY FLUID CULTURE Not indicated. (.); LEGIONELLA ANTIGEN URINE Negative (Negative); ORGANISM ID Not indicated. (.); SPECIMEN SOURCE Urine (.); URINE STREP PNEUMONIAE ANTIGEN Negative (Negative)
== END 2021-06-25 12:24 | disposition home health service (06) | DRG 189 ==
LOC: M ED 15:42 → M ED INP 15:43 → ENRESERV 06-21 07:42 → M MSPAV 06-21 19:46 → OBSVTOIN 06-22 09:08
PROVIDERS: ADMIT Internal Medicine; ATTEND Internal Medicine
DX: J96.21 Acute and chronic respiratory failure with hypoxia (principal); J18.9 Pneumonia, unspecified organism; I50.32 Chronic diastolic (congestive) heart failure; R55 Syncope and collapse; J84.10 Pulmonary fibrosis, unspecified; I25.10 Atherosclerotic heart disease of native coronary artery without angina pectoris; E78.5 Hyperlipidemia, unspecified; I11.0 Hypertensive heart disease with heart failure; Z20.822 Contact with and (suspected) exposure to COVID-19; Z99.81 Dependence on supplemental oxygen; Z79.02 Long term (current) use of antithrombotics/antiplatelets; Z79.899 Other long term (current) drug therapy; Z88.1 Allergy status to other antibiotic agents; Z88.2 Allergy status to sulfonamides; Z88.8 Allergy status to other drugs, medicaments and biological substances; Z95.5 Presence of coronary angioplasty implant and graft; Z85.46 Personal history of malignant neoplasm of prostate; Z92.3 Personal history of irradiation

== ENCOUNTER → 2021-07-18 | Outpatient (REF) | payer MEDICARE, OTHER ==
[~2021-07-18] MED LIST changes: +ATOR40TA75 PO; +FURO20TA2 PO; +LEVA45AE INH; +LEVO750T13 PO; +PLAV1TAB2 PO; +PRED10TA2 PO
[2021-07-18 12:23] LABS: BASO % 0.5 % (0.0-1.0); EOS # 0.3 10^3/uL (0.0-0.5); EOS % 5.2 % (0.0-3.0); HEMATOCRIT 41.4 % (42.0-52.0); HEMOGLOBIN 13.3 g/dl (13.5-17.5); LYMPH % 16.2 % (24.0-44.0); MEAN CORPUSCULAR HEMOGLOBIN 33.2 pg (27.0-33.0); MEAN CORPUSCULAR HGB CONC 32.1 g/dl (32.0-36.5); MEAN CORPUSCULAR VOLUME 103.2 fl (80.0-96.0); MONO # 0.6 10^3/uL (0.0-0.8); MONO % 9.4 % (2.0-8.0); NEUTROPHILS # 4.2 10^3/uL (1.5-8.5); NEUTROPHILS % 68.2 % (36.0-66.0); PLATELET COUNT, AUTOMATED 192 10^3/uL (150-450); RED BLOOD COUNT 4.01 10^6/uL (4.30-6.10); WHITE BLOOD COUNT 6.2 10^3/uL (4.0-10.0)
[2021-07-18 13:10] LABS: ATYPICAL LYMPH 4 % (0-5); BASOPHILS 1 % (0-1); EOSINOPHILS 8 % (0-3); LYMPHOCYTES 16 % (16-44); MONOCYTES 9 % (0-5); NEUTROPHILS 61 % (28-66); PLATELET ESTIMATE NORMAL (NORMAL)
== END ==
LOC: M LAB REF 12:07
PROVIDERS: ATTEND Family Medicine
DX: D64.9 Anemia, unspecified (principal)

== ENCOUNTER → 2021-08-23 | Outpatient (REF) | payer MEDICARE, OTHER ==
[2021-08-23 14:47] LABS: HEMATOCRIT 39.9 % (42.0-52.0); MEAN CORPUSCULAR HEMOGLOBIN 33.8 pg (27.0-33.0); MEAN CORPUSCULAR HGB CONC 32.6 g/dl (32.0-36.5); MEAN CORPUSCULAR VOLUME 103.6 fl (80.0-96.0); PLATELET COUNT, AUTOMATED 170 10^3/uL (150-450); RED BLOOD COUNT 3.85 10^6/uL (4.30-6.10); WHITE BLOOD COUNT 6.8 10^3/uL (4.0-10.0)
[2021-08-23 15:15] LABS: CALCIUM LEVEL 8.9 MG/DL (8.8-10.2); CREATININE FOR GFR 1.24 MG/DL (0.70-1.30); GLOMERULAR FILTRATION RATE 58.8 (>35)
== END ==
LOC: M SHH 14:17
PROVIDERS: ATTEND Internal Medicine Cardiovascular Disease
DX: I27.20 Pulmonary hypertension, unspecified (principal); I25.119 Atherosclerotic heart disease of native coronary artery with unspecified angina pectoris; R06.00 Dyspnea, unspecified

== ENCOUNTER 2022-01-29 14:33 | Inpatient (IN) | payer MEDICARE, OTHER ==
[~2022-01-29] VITALS: Ht 177.8 cm; Wt 82.9 kg
[2022-01-29] MEDS ORDERED: FURO20TA2 PO (14:51)
[2022-01-29] MEDS ORDERED: ASPI-226 PO (14:51)
[2022-01-29] MEDS ORDERED: ALFU10TA3 PO (14:51)
[2022-01-29] MEDS ORDERED: PRED10TA2 PO (14:51)
[2022-01-29] MEDS ORDERED: SPIR-10 PO (14:51)
[2022-01-29 15:46] LABS: BASO % 0.3 % (0.0-1.0); EOS % 0.3 % (0.0-3.0); HEMATOCRIT 47.6 % (42.0-52.0); HEMOGLOBIN 15.7 g/dl (13.5-17.5); LYMPH # 0.4 10^3/uL (1.5-5.0); LYMPH % 3.6 % (24.0-44.0); MEAN CORPUSCULAR HEMOGLOBIN 34.9 pg (27.0-33.0); MEAN CORPUSCULAR VOLUME 105.8 fl (80.0-96.0); MONO # 0.9 10^3/uL (0.0-0.8); MONO % 7.7 % (2.0-8.0); NEUTROPHILS # 10.3 10^3/uL (1.5-8.5); NEUTROPHILS % 86.7 % (36.0-66.0); PLATELET COUNT, AUTOMATED 174 10^3/uL (150-450); WHITE BLOOD COUNT 11.9 10^3/uL (4.0-10.0)
[2022-01-29 15:59] LABS: INR 1.25; PARTIAL THROMBOPLASTIN TIME 28.6 SECONDS (25.9-37.0); PROTHROMBIN TIME 16.1 SECONDS (12.7-14.5)
[2022-01-29 16:18] LABS: CALCIUM LEVEL 9.6 MG/DL (8.8-10.2); CREATININE FOR GFR 1.4 MG/DL (0.70-1.30); FREE T4 1.14 NG/DL (0.76-1.46); GLOMERULAR FILTRATION RATE 51.2 (>35); THYROID STIMULATING HORMONE 2.32 uIU/ML (0.358-3.740)
[2022-01-29 16:25] LABS: CK-MB VALUE MASS 2.4 NG/ML (<3.6); MB/CK RELATIVE INDEX 6.49 (< OR =4)
[2022-01-29 17:54] LABS: CK-MB VALUE MASS 2.6 NG/ML (<3.6); MB/CK RELATIVE INDEX 6.05 (< OR =4)
[2022-01-29 19:04] LABS: MAGNESIUM LEVEL 2.2 MG/DL (1.8-2.4)
[2022-01-29] MEDS ORDERED: FUROSEMIDE 40MG/4ML VIAL (J1940) IV ONE (19:40)
[2022-01-29] MEDS ORDERED: HOME MED LIST COMPLETE! XX SCH (20:25)
[2022-01-29 21:39] VITALS: BP 122/71
[2022-01-29] MEDS: ASPIRIN 81MG ENTERIC TABLET PO SCH (21:55)
[2022-01-29] MEDS: TAMSULOSIN 0.4 MG CAP PO SCH (21:55)
[2022-01-30 00:07] VITALS: BP 99/68
[2022-01-30] MEDS ORDERED: traMADol 50 MG TAB PO PRN (01:05)
[2022-01-30] MEDS ORDERED: ACETAMINOPHEN TAB 650MG DOSE (2X325MG) PO PRN (01:05)
[2022-01-30 03:12] LABS: BASO % 0.2 % (0.0-1.0); EOS # 0.1 10^3/uL (0.0-0.5); HEMATOCRIT 41.7 % (42.0-52.0); HEMOGLOBIN 13.9 g/dl (13.5-17.5); LYMPH # 1.5 10^3/uL (1.5-5.0); LYMPH % 14.4 % (24.0-44.0); MEAN CORPUSCULAR HEMOGLOBIN 34.2 pg (27.0-33.0); MEAN CORPUSCULAR HGB CONC 33.3 g/dl (32.0-36.5); MEAN CORPUSCULAR VOLUME 102.7 fl (80.0-96.0); MONO # 1.1 10^3/uL (0.0-0.8); MONO % 10.5 % (2.0-8.0); NEUTROPHILS # 7.7 10^3/uL (1.5-8.5); PLATELET COUNT, AUTOMATED 162 10^3/uL (150-450); RED BLOOD COUNT 4.06 10^6/uL (4.30-6.10); WHITE BLOOD COUNT 10.5 10^3/uL (4.0-10.0)
[2022-01-30 03:34] LABS: BLOOD UREA NITROGEN 26 MG/DL (7-18); CALCIUM LEVEL 8.6 MG/DL (8.8-10.2); CARBON DIOXIDE LEVEL 32 MEQ/L (21-32); CHLORIDE LEVEL 99 MEQ/L (98-107); CREATININE FOR GFR 1.18 MG/DL (0.70-1.30); GLOMERULAR FILTRATION RATE > 60.0 (>35); GLUCOSE, FASTING 102 MG/DL (70-100); MAGNESIUM LEVEL 2.2 MG/DL (1.8-2.4); POTASSIUM SERUM 3.7 MEQ/L (3.5-5.1); SODIUM LEVEL 137 MEQ/L (136-145)
[2022-01-30 03:38] LABS: CK-MB VALUE MASS 2.6 NG/ML (<3.6); MB/CK RELATIVE INDEX 8.97 (< OR =4)
[2022-01-30 04:00] VITALS: BP 100/58
[2022-01-30] MEDS: HEPARIN SOD (PORCINE) 5000UNITS/ML 1ML VIAL/SYRINGE SQ SCH ×3 (05:22→22:56)
[2022-01-30] MEDS: SPIRONOLACTONE 25 MG TAB PO SCH ×2 (05:22→12:59)
[2022-01-30] MEDS: CLOPIDOGREL 75 MG TAB PO SCH (05:22)
[2022-01-30] MEDS: predniSONE 10 MG TAB PO SCH ×2 (05:22→12:59)
[2022-01-30 08:19] VITALS: BP 117/61
[2022-01-30] MEDS: FUROSEMIDE 40MG/4ML VIAL (J1940) IV SCH ×2 (10:02→16:33)
[2022-01-30] MEDS: ATORVASTATIN 20 MG TAB PO SCH (12:59)
[2022-01-30 13:43] VITALS: BP 111/78
[2022-01-30 16:02] VITALS: BP 133/84
[2022-01-30 20:00] VITALS: BP 106/75
[2022-01-30] MEDS ORDERED: MOM 30ML SUSPENSION UDC PO ONE (22:20)
[2022-01-30] MEDS ORDERED: CALCIUM CARBONATE 500 MG CHEW U/D PO ONE (22:20)
[2022-01-30] MEDS: ASPIRIN 81MG ENTERIC TABLET PO SCH (22:56)
[2022-01-30] MEDS: TAMSULOSIN 0.4 MG CAP PO SCH (22:56)
[2022-01-31] VITALS (7 sets, daily range): BP systolic 91–150; BP diastolic 56–94
[2022-01-31 05:54] LABS: BASO % 0.3 % (0.0-1.0); EOS # 0.1 10^3/uL (0.0-0.5); EOS % 0.8 % (0.0-3.0); HEMATOCRIT 43.1 % (42.0-52.0); HEMOGLOBIN 14.8 g/dl (13.5-17.5); LYMPH # 1.3 10^3/uL (1.5-5.0); LYMPH % 10.4 % (24.0-44.0); MEAN CORPUSCULAR HEMOGLOBIN 35.7 pg (27.0-33.0); MEAN CORPUSCULAR HGB CONC 34.3 g/dl (32.0-36.5); MEAN CORPUSCULAR VOLUME 103.9 fl (80.0-96.0); MONO # 1.2 10^3/uL (0.0-0.8); MONO % 10.2 % (2.0-8.0); NEUTROPHILS # 9.3 10^3/uL (1.5-8.5); NEUTROPHILS % 77.1 % (36.0-66.0); PLATELET COUNT, AUTOMATED 176 10^3/uL (150-450); RED BLOOD COUNT 4.15 10^6/uL (4.30-6.10); WHITE BLOOD COUNT 12.1 10^3/uL (4.0-10.0)
[2022-01-31] MEDS ORDERED: SIMETHICONE 80MG CHEW TAB PO PRN (06:00)
[2022-01-31 06:24] LABS: CALCIUM LEVEL 9.4 MG/DL (8.8-10.2); CREATININE FOR GFR 1.39 MG/DL (0.70-1.30); GLOMERULAR FILTRATION RATE 51.6 (>35); MAGNESIUM LEVEL 2.8 MG/DL (1.8-2.4); POTASSIUM SERUM 3.8 MEQ/L (3.5-5.1)
[2022-01-31] MEDS: predniSONE 10 MG TAB PO SCH ×2 (06:33→12:20)
[2022-01-31] MEDS: HEPARIN SOD (PORCINE) 5000UNITS/ML 1ML VIAL/SYRINGE SQ SCH ×3 (06:33→21:45)
[2022-01-31] MEDS: CLOPIDOGREL 75 MG TAB PO SCH (06:33)
[2022-01-31] MEDS: SPIRONOLACTONE 25 MG TAB PO SCH ×2 (06:33→12:20)
[2022-01-31] MEDS: FUROSEMIDE 40MG/4ML VIAL (J1940) IV SCH (09:29)
[2022-01-31] MEDS: ATORVASTATIN 20 MG TAB PO SCH (12:20)
[2022-01-31] MEDS: FUROSEMIDE 40 MG TAB PO SCH (18:01)
[2022-01-31] MEDS: TAMSULOSIN 0.4 MG CAP PO SCH (21:45)
[2022-01-31] MEDS: ASPIRIN 81MG ENTERIC TABLET PO SCH (21:45)
[2022-02-01] VITALS: BP 90/63
[2022-02-01] MEDS: HEPARIN SOD (PORCINE) 5000UNITS/ML 1ML VIAL/SYRINGE SQ SCH ×3 (06:03→21:54)
[2022-02-01] MEDS: predniSONE 10 MG TAB PO SCH ×2 (06:04→12:31)
[2022-02-01] MEDS: CLOPIDOGREL 75 MG TAB PO SCH (06:04)
[2022-02-01] MEDS: SPIRONOLACTONE 25 MG TAB PO SCH ×2 (06:04→12:31)
[2022-02-01 08:01] LABS: BASO % 0.3 % (0.0-1.0); EOS # 0.1 10^3/uL (0.0-0.5); HEMOGLOBIN 14.7 g/dl (13.5-17.5); LYMPH # 1.8 10^3/uL (1.5-5.0); LYMPH % 14.3 % (24.0-44.0); MEAN CORPUSCULAR HEMOGLOBIN 34.6 pg (27.0-33.0); MEAN CORPUSCULAR HGB CONC 33.4 g/dl (32.0-36.5); MEAN CORPUSCULAR VOLUME 103.5 fl (80.0-96.0); MONO # 1.1 10^3/uL (0.0-0.8); MONO % 9.2 % (2.0-8.0); NEUTROPHILS # 9.2 10^3/uL (1.5-8.5); NEUTROPHILS % 73.6 % (36.0-66.0); PLATELET COUNT, AUTOMATED 184 10^3/uL (150-450); RED BLOOD COUNT 4.25 10^6/uL (4.30-6.10); WHITE BLOOD COUNT 12.4 10^3/uL (4.0-10.0)
[2022-02-01 08:07] VITALS: BP 100/60
[2022-02-01 08:28] LABS: CALCIUM LEVEL 9.1 MG/DL (8.8-10.2); CREATININE FOR GFR 1.33 MG/DL (0.70-1.30); GLOMERULAR FILTRATION RATE 54.3 (>35); MAGNESIUM LEVEL 2.6 MG/DL (1.8-2.4); POTASSIUM SERUM 3.9 MEQ/L (3.5-5.1)
[2022-02-01] MEDS: FUROSEMIDE 40 MG TAB PO SCH ×2 (09:00→16:29)
[2022-02-01 12:00] VITALS: BP 130/62
[2022-02-01] MEDS: ATORVASTATIN 20 MG TAB PO SCH (12:31)
[2022-02-01] MEDS: MOM 30ML SUSPENSION UDC PO PRN (13:39)
[2022-02-01 16:06] VITALS: BP 100/60
[2022-02-01 20:00] VITALS: BP 116/83
[2022-02-01] MEDS: ASPIRIN 81MG ENTERIC TABLET PO SCH (21:54)
[2022-02-01] MEDS: TAMSULOSIN 0.4 MG CAP PO SCH (21:54)
[2022-02-02] VITALS: BP 106/66
[2022-02-02 04:00] VITALS: BP 111/66
[2022-02-02] MEDS: SPIRONOLACTONE 25 MG TAB PO SCH ×2 (05:21→13:29)
[2022-02-02] MEDS: CLOPIDOGREL 75 MG TAB PO SCH (05:21)
[2022-02-02] MEDS: predniSONE 10 MG TAB PO SCH ×2 (05:22→13:29)
[2022-02-02] MEDS: HEPARIN SOD (PORCINE) 5000UNITS/ML 1ML VIAL/SYRINGE SQ SCH ×3 (05:22→21:33)
[2022-02-02 07:31] LABS: BASO % 0.2 % (0.0-1.0); EOS # 0.1 10^3/uL (0.0-0.5); EOS % 0.5 % (0.0-3.0); HEMATOCRIT 42.6 % (42.0-52.0); HEMOGLOBIN 13.9 g/dl (13.5-17.5); LYMPH # 1.3 10^3/uL (1.5-5.0); LYMPH % 10.1 % (24.0-44.0); MEAN CORPUSCULAR HEMOGLOBIN 33.9 pg (27.0-33.0); MEAN CORPUSCULAR HGB CONC 32.6 g/dl (32.0-36.5); MEAN CORPUSCULAR VOLUME 103.9 fl (80.0-96.0); MONO # 1.1 10^3/uL (0.0-0.8); MONO % 8.4 % (2.0-8.0); NEUTROPHILS % 79.4 % (36.0-66.0); PLATELET COUNT, AUTOMATED 191 10^3/uL (150-450); WHITE BLOOD COUNT 12.6 10^3/uL (4.0-10.0)
[2022-02-02 07:54] LABS: CALCIUM LEVEL 9.1 MG/DL (8.8-10.2); CREATININE FOR GFR 1.32 MG/DL (0.70-1.30); GLOMERULAR FILTRATION RATE 54.7 (>35); MAGNESIUM LEVEL 2.6 MG/DL (1.8-2.4); POTASSIUM SERUM 4.2 MEQ/L (3.5-5.1)
[2022-02-02 08:09] VITALS: BP 137/81
[2022-02-02] MEDS: FUROSEMIDE 40 MG TAB PO SCH (08:48)
[2022-02-02] MEDS ORDERED: BISACODYL 10 MG SUPP PR PRN (10:55)
[2022-02-02] MEDS: MOM 30ML SUSPENSION UDC PO PRN (10:58)
[2022-02-02 12:05] VITALS: BP 95/67
[2022-02-02] MEDS: ATORVASTATIN 20 MG TAB PO SCH (13:29)
[2022-02-02 15:46] VITALS: BP 119/80
[2022-02-02 20:00] VITALS: BP 117/69
[2022-02-02] MEDS: TAMSULOSIN 0.4 MG CAP PO SCH (21:31)
[2022-02-02] MEDS: ASPIRIN 81MG ENTERIC TABLET PO SCH (21:32)
[2022-02-03] VITALS: BP 107/70
[2022-02-03 04:00] VITALS: BP 118/83
[2022-02-03 05:30] VITALS: BP 116/76
[2022-02-03] MEDS: predniSONE 10 MG TAB PO SCH (05:30)
[2022-02-03] MEDS: CLOPIDOGREL 75 MG TAB PO SCH (05:30)
[2022-02-03] MEDS: SPIRONOLACTONE 25 MG TAB PO SCH (05:30)
[2022-02-03] MEDS: HEPARIN SOD (PORCINE) 5000UNITS/ML 1ML VIAL/SYRINGE SQ SCH (05:31)
[2022-02-03 06:02] LABS: BASO % 0.3 % (0.0-1.0); EOS % 0.3 % (0.0-3.0); HEMATOCRIT 44.3 % (42.0-52.0); HEMOGLOBIN 14.6 g/dl (13.5-17.5); LYMPH # 1.6 10^3/uL (1.5-5.0); LYMPH % 11.3 % (24.0-44.0); MEAN CORPUSCULAR HEMOGLOBIN 34.3 pg (27.0-33.0); MONO # 1.1 10^3/uL (0.0-0.8); NEUTROPHILS % 78.3 % (36.0-66.0); PLATELET COUNT, AUTOMATED 183 10^3/uL (150-450); RED BLOOD COUNT 4.26 10^6/uL (4.30-6.10)
[2022-02-03 06:19] LABS: CALCIUM LEVEL 9.3 MG/DL (8.8-10.2); CREATININE FOR GFR 1.35 MG/DL (0.70-1.30); GLOMERULAR FILTRATION RATE 53.3 (>35); MAGNESIUM LEVEL 2.4 MG/DL (1.8-2.4); POTASSIUM SERUM 4.2 MEQ/L (3.5-5.1)
[2022-02-03] MEDS ORDERED: FURO20TA2 PO (10:07)
[2022-02-03] MEDS ORDERED: DILT30TA PO (10:07)
== END 2022-02-03 12:03 | disposition home health service (06) | DRG 292 ==
LOC: M ED 14:33 → M ED INP 18:48 → ENRESERV 20:10 → M PCU 21:39
PROVIDERS: ADMIT Internal Medicine; ATTEND Internal Medicine
PROC: B246ZZZ Ultrasonography of Right and Left Heart (ICD-10-PCS; principal; 2022-01-29)
DX: I50.9 Heart failure, unspecified (principal); I47.2 Ventricular tachycardia; J96.11 Chronic respiratory failure with hypoxia; I27.29 Other secondary pulmonary hypertension; J84.10 Pulmonary fibrosis, unspecified; Z99.81 Dependence on supplemental oxygen; Z85.46 Personal history of malignant neoplasm of prostate; Z92.3 Personal history of irradiation; N18.30 Chronic kidney disease, stage 3 unspecified; I25.10 Atherosclerotic heart disease of native coronary artery without angina pectoris; Z95.5 Presence of coronary angioplasty implant and graft; Z20.822 Contact with and (suspected) exposure to COVID-19; Z90.49 Acquired absence of other specified parts of digestive tract; E78.5 Hyperlipidemia, unspecified; N40.0 Benign prostatic hyperplasia without lower urinary tract symptoms; Z79.82 Long term (current) use of aspirin; Z79.52 Long term (current) use of systemic steroids; Z79.899 Other long term (current) drug therapy; Z88.1 Allergy status to other antibiotic agents; Z88.2 Allergy status to sulfonamides; Z88.8 Allergy status to other drugs, medicaments and biological substances; R79.89 Other specified abnormal findings of blood chemistry; E03.9 Hypothyroidism, unspecified

== ENCOUNTER → 2022-02-19 | Outpatient (CLI) | payer MEDICARE, OTHER ==
[~2022-02-19] MED LIST changes: +ASPI-226 PO; +DILT30TA PO; +SPIR-10 PO
[2022-02-19 12:48] LABS: BASO # 0.1 10^3/uL (0.0-0.2); BASO % 0.4 % (0.0-1.0); EOS % 0.1 % (0.0-3.0); HEMATOCRIT 43.4 % (42.0-52.0); LYMPH # 0.5 10^3/uL (1.5-5.0); MEAN CORPUSCULAR HEMOGLOBIN 35.4 pg (27.0-33.0); MEAN CORPUSCULAR HGB CONC 34.6 g/dl (32.0-36.5); MEAN CORPUSCULAR VOLUME 102.4 fl (80.0-96.0); MONO # 0.7 10^3/uL (0.0-0.8); MONO % 5.1 % (2.0-8.0); NEUTROPHILS # 11.6 10^3/uL (1.5-8.5); NEUTROPHILS % 88.8 % (36.0-66.0); PLATELET COUNT, AUTOMATED 168 10^3/uL (150-450); RED BLOOD COUNT 4.24 10^6/uL (4.30-6.10); WHITE BLOOD COUNT 13.1 10^3/uL (4.0-10.0)
[2022-02-19 13:11] LABS: ALBUMIN 3.3 GM/DL (3.2-5.2); ALT/SGPT 79 U/L (12-78); BILIRUBIN,TOTAL 1.1 MG/DL (0.2-1.0); BLOOD UREA NITROGEN 24 MG/DL (7-18); CALCIUM LEVEL 9.6 MG/DL (8.8-10.2); CARBON DIOXIDE LEVEL 28 MEQ/L (21-32); CHLORIDE LEVEL 96 MEQ/L (98-107); CREATININE FOR GFR 1.16 MG/DL (0.70-1.30); GLOMERULAR FILTRATION RATE > 60.0 (>35); GLUCOSE, FASTING 122 MG/DL (70-100); LIPASE 120 U/L (73-393); POTASSIUM SERUM 4.9 MEQ/L (3.5-5.1); SODIUM LEVEL 132 MEQ/L (136-145); TOTAL PROTEIN 6.5 GM/DL (6.4-8.2)
== END ==
LOC: M RAD 11:20
PROVIDERS: ATTEND Family Medicine
DX: R14.0 Abdominal distension (gaseous) (principal)

== ENCOUNTER → 2022-03-06 | Outpatient (REF) | payer MEDICARE, OTHER ==
[~2022-03-06] MED LIST changes: +LEVO1TAB40 PO; -LEVO750T13 PO; +SIME125T PO
[2022-03-06 14:54] LABS: BASO % 0.2 % (0.0-1.0); EOS # 0.1 10^3/uL (0.0-0.5); EOS % 0.3 % (0.0-3.0); HEMATOCRIT 44.6 % (42.0-52.0); HEMOGLOBIN 15.3 g/dl (13.5-17.5); LYMPH # 0.6 10^3/uL (1.5-5.0); LYMPH % 3.5 % (24.0-44.0); MEAN CORPUSCULAR HEMOGLOBIN 34.9 pg (27.0-33.0); MEAN CORPUSCULAR HGB CONC 34.3 g/dl (32.0-36.5); MEAN CORPUSCULAR VOLUME 101.6 fl (80.0-96.0); MONO # 0.8 10^3/uL (0.0-0.8); MONO % 5.1 % (2.0-8.0); NEUTROPHILS # 14.8 10^3/uL (1.5-8.5); NEUTROPHILS % 89.3 % (36.0-66.0); PLATELET COUNT, AUTOMATED 179 10^3/uL (150-450); RED BLOOD COUNT 4.39 10^6/uL (4.30-6.10); WHITE BLOOD COUNT 16.6 10^3/uL (4.0-10.0)
[2022-03-06 18:23] LABS: ALBUMIN 3.3 GM/DL (3.2-5.2); ALT/SGPT 83 U/L (12-78); BLOOD UREA NITROGEN 29 MG/DL (7-18); CALCIUM LEVEL 9.4 MG/DL (8.8-10.2); CARBON DIOXIDE LEVEL 27 MEQ/L (21-32); CHLORIDE LEVEL 90 MEQ/L (98-107); CREATININE FOR GFR 1.19 MG/DL (0.70-1.30); GLOMERULAR FILTRATION RATE > 60.0 (>35); GLUCOSE, FASTING 176 MG/DL (70-100); POTASSIUM SERUM 4.3 MEQ/L (3.5-5.1); SODIUM LEVEL 125 MEQ/L (136-145); TOTAL PROTEIN 6.2 GM/DL (6.4-8.2)
== END ==
LOC: M SHH 14:35
PROVIDERS: ATTEND Family Medicine
DX: I13.0 Hypertensive heart and chronic kidney disease with heart failure and stage 1 through stage 4 chronic kidney disease, or unspecified chronic kidney disease (principal); I50.33 Acute on chronic diastolic (congestive) heart failure; E03.8 Other specified hypothyroidism; N18.31 Chronic kidney disease, stage 3a

== ENCOUNTER 2022-03-07 17:10 | Inpatient (IN) | payer MEDICARE, OTHER ==
[~2022-03-07] VITALS: Ht 177.8 cm; Wt 77.3 kg
[~2022-03-07 17:10] MED LIST changes: -SIME125T PO
[2022-03-07 18:30] VITALS: BP 117/73
[2022-03-07 19:08] LABS: VENOUS BASE EXCESS 2.6 (-2.0-2.0); VENOUS HCO3 26.7 MEQ/L (23.0-27.0); VENOUS O2 SATURATION 86.6 % (60.0-80.0); VENOUS PARTIAL PRESSURE CO2 39.5 mmHg (38.0-50.0); VENOUS PARTIAL PRESSURE O2 48.2 mmHg (30.0-50.0); VENOUS PH 7.448 UNITS (7.330-7.430); VENOUS STANDARD HCO3 26.5 MEQ/L; VENOUS TOTAL CO2 27.9 MEQ/L (24.0-28.0)
[2022-03-07 19:13] LABS: BASO % 0.3 % (0.0-1.0); EOS % 0.1 % (0.0-3.0); HEMATOCRIT 45.8 % (42.0-52.0); HEMOGLOBIN 15.9 g/dl (13.5-17.5); LYMPH # 0.5 10^3/uL (1.5-5.0); LYMPH % 3.4 % (24.0-44.0); MEAN CORPUSCULAR HEMOGLOBIN 34.8 pg (27.0-33.0); MEAN CORPUSCULAR HGB CONC 34.7 g/dl (32.0-36.5); MEAN CORPUSCULAR VOLUME 100.2 fl (80.0-96.0); MONO # 0.6 10^3/uL (0.0-0.8); MONO % 4.3 % (2.0-8.0); NEUTROPHILS # 12.6 10^3/uL (1.5-8.5); NEUTROPHILS % 90.2 % (36.0-66.0); PLATELET COUNT, AUTOMATED 183 10^3/uL (150-450); RED BLOOD COUNT 4.57 10^6/uL (4.30-6.10)
[2022-03-07 19:30] LABS: RSV AMPLIFICATION NEGATIVE (NEGATIVE)
[2022-03-07 19:36] LABS: ALBUMIN 3.4 GM/DL (3.2-5.2); ALT/SGPT 76 U/L (12-78); BILIRUBIN,TOTAL 1.4 MG/DL (0.2-1.0); BLOOD UREA NITROGEN 26 MG/DL (7-18); CALCIUM LEVEL 9.5 MG/DL (8.8-10.2); CARBON DIOXIDE LEVEL 32 MEQ/L (21-32); CHLORIDE LEVEL 88 MEQ/L (98-107); GLOMERULAR FILTRATION RATE > 60.0 (>35); GLUCOSE, FASTING 130 MG/DL (70-100); MAGNESIUM LEVEL 3.2 MG/DL (1.8-2.4); POTASSIUM SERUM 4.7 MEQ/L (3.5-5.1); SODIUM LEVEL 126 MEQ/L (136-145); TOTAL PROTEIN 6.7 GM/DL (6.4-8.2)
[2022-03-07 19:49] LABS: CORTISOL BASELINE 17.9 UG/DL (4.3-22.4)
[2022-03-07 19:55] LABS: FREE T4 1.22 NG/DL (0.76-1.46); PHOSPHORUS LEVEL 2.9 MG/DL (2.5-4.9); THYROID STIMULATING HORMONE 1.63 uIU/ML (0.358-3.740)
[2022-03-07 20:00] VITALS: BP 124/84
[2022-03-07] MEDS ORDERED: GI COCKTAIL 50ML BTL(HYOSCYAMINE/MAALOX/LIDOCAINE VISCOUS)(1:3:1) PO ONE (20:00)
[2022-03-07 20:14] LABS: NT-PRO BNP 285 PG/ML (<450)
[2022-03-07] MEDS ORDERED: FURO20TA2 PO (20:15)
[2022-03-07] MEDS ORDERED: DILT30TA PO (20:15)
[2022-03-07] MEDS ORDERED: PRED10TA2 PO (20:15)
[2022-03-07] MEDS ORDERED: SIME125T PO (20:16)
[2022-03-07 20:19] LABS: INR 1.07; PROTHROMBIN TIME 14.4 SECONDS (12.7-14.5)
[2022-03-07 20:20] LABS: PARTIAL THROMBOPLASTIN TIME 24.5 SECONDS (25.9-37.0)
[2022-03-07] MEDS ORDERED: HOME MED LIST COMPLETE! XX SCH (20:20)
[2022-03-07] MEDS ORDERED: NS 1,000 ML IV SCH (20:55)
[2022-03-07 22:51] LABS: RBC, URINE 0-1 /hpf (0-3); WBC, URINE 0-1 /hpf (0-3)
[2022-03-07 22:53] LABS: AMORPHOUS SEDIMENT, URINE MOD AMOUNT (NEGATIVE); BACTERIA, URINE NONE SEEN; HYALINE CAST, URINE NONE SEEN /lpf (0-1); MUCUS, URINE SMALL AMOUNT (NEGATIVE); SQUAMOUS EPITHELIAL CELL URINE 0 /hpf (SMALL AMT); TRANSITIONAL EPI CELLS, URINE SMALL AMOUNT /hpf
[2022-03-07 23:28] LABS: BLOOD UREA NITROGEN 26 MG/DL (7-18); CALCIUM LEVEL 9.1 MG/DL (8.8-10.2); CARBON DIOXIDE LEVEL 34 MEQ/L (21-32); CHLORIDE LEVEL 89 MEQ/L (98-107); CREATININE FOR GFR 1.16 MG/DL (0.70-1.30); GLOMERULAR FILTRATION RATE > 60.0 (>35); GLUCOSE, FASTING 125 MG/DL (70-100); POTASSIUM SERUM 4.5 MEQ/L (3.5-5.1); SODIUM LEVEL 126 MEQ/L (136-145)
[2022-03-08] VITALS (7 sets, daily range): BP systolic 92–122; BP diastolic 58–70
[2022-03-08] MEDS ORDERED: NS 1,000 ML IV SCH (01:50)
[2022-03-08] MEDS ORDERED: MORPHINE 2 MG/ML 1ML VIAL IV ONE (02:05)
[2022-03-08] MEDS ORDERED: KETOROLAC 30 MG/ML 1ML VIAL IV ONE (02:15)
[2022-03-08 03:38] LABS: BLOOD UREA NITROGEN 27 MG/DL (7-18); CALCIUM LEVEL 8.9 MG/DL (8.8-10.2); CARBON DIOXIDE LEVEL 34 MEQ/L (21-32); CHLORIDE LEVEL 90 MEQ/L (98-107); CREATININE FOR GFR 1.15 MG/DL (0.70-1.30); GLOMERULAR FILTRATION RATE > 60.0 (>35); GLUCOSE, FASTING 98 MG/DL (70-100); LIPASE 89 U/L (73-393); POTASSIUM SERUM 4.6 MEQ/L (3.5-5.1); SODIUM LEVEL 129 MEQ/L (136-145)
[2022-03-08] MEDS ORDERED: cefTRIAXone SOD 1 GM in D5W MINI-BAG PLUS 50 ML IV SCH (05:00)
[2022-03-08] MEDS ORDERED: AZITHROMYCIN INJ 500 MG, VIAL MATE ADAPTER 1 EACH in NS 250 ML IV SCH (06:00)
[2022-03-08 07:11] LABS: BASO % 0.3 % (0.0-1.0); EOS # 0.1 10^3/uL (0.0-0.5); EOS % 0.5 % (0.0-3.0); HEMATOCRIT 39.7 % (42.0-52.0); LYMPH # 1.3 10^3/uL (1.5-5.0); LYMPH % 11.9 % (24.0-44.0); MEAN CORPUSCULAR HEMOGLOBIN 34.2 pg (27.0-33.0); MEAN CORPUSCULAR HGB CONC 34.3 g/dl (32.0-36.5); MEAN CORPUSCULAR VOLUME 99.7 fl (80.0-96.0); MONO # 1.1 10^3/uL (0.0-0.8); MONO % 10.3 % (2.0-8.0); NEUTROPHILS # 8.3 10^3/uL (1.5-8.5); PLATELET COUNT, AUTOMATED 156 10^3/uL (150-450); RED BLOOD COUNT 3.98 10^6/uL (4.30-6.10); WHITE BLOOD COUNT 11.1 10^3/uL (4.0-10.0)
[2022-03-08 07:13] LABS: HEMOGLOBIN 13.6 g/dl (13.5-17.5)
[2022-03-08 07:40] LABS: BLOOD UREA NITROGEN 29 MG/DL (7-18); CALCIUM LEVEL 8.7 MG/DL (8.8-10.2); CARBON DIOXIDE LEVEL 28 MEQ/L (21-32); CHLORIDE LEVEL 93 MEQ/L (98-107); CREATININE FOR GFR 1.08 MG/DL (0.70-1.30); GLOMERULAR FILTRATION RATE > 60.0 (>35); GLUCOSE, FASTING 83 MG/DL (70-100); MAGNESIUM LEVEL 3.1 MG/DL (1.8-2.4); NT-PRO BNP 277 PG/ML (<450); POTASSIUM SERUM 4.3 MEQ/L (3.5-5.1); SODIUM LEVEL 127 MEQ/L (136-145)
[2022-03-08] MEDS ORDERED: FUROSEMIDE 40 MG TAB PO SCH (09:00)
[2022-03-08] MEDS: predniSONE 10 MG TAB PO SCH ×2 (09:39→15:44)
[2022-03-08] MEDS: DOCUSATE SODIUM 100MG CAPSULE PO SCH ×2 (09:40→20:19)
[2022-03-08] MEDS: MIRALAX *UNIT DOSE* 17GM PACKET PO SCH (09:40)
[2022-03-08] MEDS: LACTOBACILLUS ACIDOPHILUS CAP (BACID) PO SCH (09:40)
[2022-03-08 11:36] LABS: BLOOD UREA NITROGEN 29 MG/DL (7-18); CALCIUM LEVEL 8.5 MG/DL (8.8-10.2); CARBON DIOXIDE LEVEL 30 MEQ/L (21-32); CHLORIDE LEVEL 93 MEQ/L (98-107); CREATININE FOR GFR 1.11 MG/DL (0.70-1.30); GLOMERULAR FILTRATION RATE > 60.0 (>35); GLUCOSE, FASTING 113 MG/DL (70-100); POTASSIUM SERUM 3.9 MEQ/L (3.5-5.1); SODIUM LEVEL 129 MEQ/L (136-145)
[2022-03-08] MEDS ORDERED: CLOPIDOGREL 75 MG TAB PO SCH (12:00)
[2022-03-08] MEDS ORDERED: ACETAMINOPHEN TAB 650MG DOSE (2X325MG) PO PRN (14:25)
[2022-03-08] MEDS: PANTOPRAZOLE 20 MG TAB PO SCH (15:44)
[2022-03-08] MEDS: ATORVASTATIN 20 MG TAB PO SCH (15:44)
[2022-03-08 15:47] LABS: BLOOD UREA NITROGEN 27 MG/DL (7-18); CALCIUM LEVEL 8.2 MG/DL (8.8-10.2); CARBON DIOXIDE LEVEL 28 MEQ/L (21-32); CHLORIDE LEVEL 93 MEQ/L (98-107); GLOMERULAR FILTRATION RATE > 60.0 (>35); GLUCOSE, FASTING 129 MG/DL (70-100); POTASSIUM SERUM 4.4 MEQ/L (3.5-5.1); SODIUM LEVEL 128 MEQ/L (136-145)
[2022-03-08 16:29] LABS: HEMATOCRIT 38.1 % (42.0-52.0)
[2022-03-08 19:20] LABS: HEMATOCRIT 36.4 % (42.0-52.0); HEMOGLOBIN 12.6 g/dl (13.5-17.5)
[2022-03-08 19:39] LABS: BLOOD UREA NITROGEN 25 MG/DL (7-18); CALCIUM LEVEL 8.2 MG/DL (8.8-10.2); CARBON DIOXIDE LEVEL 29 MEQ/L (21-32); CHLORIDE LEVEL 94 MEQ/L (98-107); CREATININE FOR GFR 1.16 MG/DL (0.70-1.30); GLOMERULAR FILTRATION RATE > 60.0 (>35); GLUCOSE, FASTING 143 MG/DL (70-100); POTASSIUM SERUM 3.8 MEQ/L (3.5-5.1); SODIUM LEVEL 127 MEQ/L (136-145)
[2022-03-08] MEDS ORDERED: ASPIRIN 81MG ENTERIC TABLET PO SCH (21:00)
[2022-03-08] MEDS: ALFUZOSIN 10 MG PO SCH (21:26)
[2022-03-09] VITALS: BP 116/79
[2022-03-09 00:17] LABS: HEMATOCRIT 36.3 % (42.0-52.0); HEMOGLOBIN 12.5 g/dl (13.5-17.5)
[2022-03-09 01:22] LABS: BLOOD UREA NITROGEN 24 MG/DL (7-18); CALCIUM LEVEL 8.3 MG/DL (8.8-10.2); CARBON DIOXIDE LEVEL 30 MEQ/L (21-32); CHLORIDE LEVEL 95 MEQ/L (98-107); CREATININE FOR GFR 0.93 MG/DL (0.70-1.30); GLOMERULAR FILTRATION RATE > 60.0 (>35); GLUCOSE, FASTING 114 MG/DL (70-100); POTASSIUM SERUM 4.1 MEQ/L (3.5-5.1); SODIUM LEVEL 130 MEQ/L (136-145)
[2022-03-09 04:00] VITALS: BP 111/60
[2022-03-09 05:04] LABS: BASO % 0.2 % (0.0-1.0); EOS % 0.1 % (0.0-3.0); HEMATOCRIT 36.7 % (42.0-52.0); HEMOGLOBIN 12.6 g/dl (13.5-17.5); LYMPH % 9.7 % (24.0-44.0); MEAN CORPUSCULAR HEMOGLOBIN 34.9 pg (27.0-33.0); MEAN CORPUSCULAR HGB CONC 34.3 g/dl (32.0-36.5); MEAN CORPUSCULAR VOLUME 101.7 fl (80.0-96.0); MONO # 0.9 10^3/uL (0.0-0.8); MONO % 8.6 % (2.0-8.0); NEUTROPHILS # 8.5 10^3/uL (1.5-8.5); NEUTROPHILS % 79.9 % (36.0-66.0); PLATELET COUNT, AUTOMATED 153 10^3/uL (150-450); RED BLOOD COUNT 3.61 10^6/uL (4.30-6.10); WHITE BLOOD COUNT 10.7 10^3/uL (4.0-10.0)
[2022-03-09 05:37] LABS: BLOOD UREA NITROGEN 24 MG/DL (7-18); CALCIUM LEVEL 8.5 MG/DL (8.8-10.2); CARBON DIOXIDE LEVEL 29 MEQ/L (21-32); CHLORIDE LEVEL 95 MEQ/L (98-107); CREATININE FOR GFR 1.01 MG/DL (0.70-1.30); GLOMERULAR FILTRATION RATE > 60.0 (>35); GLUCOSE, FASTING 96 MG/DL (70-100); MAGNESIUM LEVEL 2.7 MG/DL (1.8-2.4); POTASSIUM SERUM 3.9 MEQ/L (3.5-5.1); SODIUM LEVEL 126 MEQ/L (136-145)
[2022-03-09 07:44] VITALS: BP 142/65
[2022-03-09] MEDS ORDERED: FUROSEMIDE 40MG/4ML VIAL (J1940) IV SCH (09:00)
[2022-03-09] MEDS ORDERED: OMEPRAZOLE 20MG CAP PO SCH (09:00)
[2022-03-09] MEDS: GASTROGRAFIN SOLUTION 30ML (Q9963) PO SCH ×2 (10:27→11:08)
[2022-03-09 11:27] VITALS: BP 116/88
[2022-03-09] MEDS ORDERED: ISOVUE-370 76% 100ML VIAL As Ordered ONE (12:01)
[2022-03-09] MEDS: LACTOBACILLUS ACIDOPHILUS CAP (BACID) PO SCH (13:17)
[2022-03-09] MEDS: ATORVASTATIN 20 MG TAB PO SCH (13:17)
[2022-03-09] MEDS: DOCUSATE SODIUM 100MG CAPSULE PO SCH ×2 (13:17→20:29)
[2022-03-09] MEDS: PANTOPRAZOLE 20 MG TAB PO SCH (13:17)
[2022-03-09] MEDS: predniSONE 10 MG TAB PO SCH ×2 (13:17→15:03)
[2022-03-09] MEDS: MIRALAX *UNIT DOSE* 17GM PACKET PO SCH (13:18)
[2022-03-09 15:10] LABS: HEMATOCRIT 36.3 % (42.0-52.0); HEMOGLOBIN 12.4 g/dl (13.5-17.5)
[2022-03-09 15:38] VITALS: BP 97/56
[2022-03-09 15:39] LABS: BLOOD UREA NITROGEN 25 MG/DL (7-18); CALCIUM LEVEL 8.2 MG/DL (8.8-10.2); CARBON DIOXIDE LEVEL 32 MEQ/L (21-32); CHLORIDE LEVEL 95 MEQ/L (98-107); CREATININE FOR GFR 1.03 MG/DL (0.70-1.30); GLOMERULAR FILTRATION RATE > 60.0 (>35); GLUCOSE, FASTING 110 MG/DL (70-100); POTASSIUM SERUM 3.4 MEQ/L (3.5-5.1); SODIUM LEVEL 130 MEQ/L (136-145)
[2022-03-09] MEDS ORDERED: POTASSIUM CHLORIDE 10MEQ SR TABLET PO ONE (17:00)
[2022-03-09] MEDS ORDERED: TOLVAPTAN 7.5 MG HALF-TAB PO ONE (18:00)
[2022-03-09 20:00] VITALS: BP 106/62
[2022-03-09] MEDS: ALFUZOSIN 10 MG PO SCH (20:30)
[2022-03-10] VITALS: BP 102/58
[2022-03-10 04:00] VITALS: BP 146/89
[2022-03-10 05:51] LABS: BASO % 0.3 % (0.0-1.0); EOS % 0.1 % (0.0-3.0); HEMATOCRIT 37.5 % (42.0-52.0); LYMPH # 0.5 10^3/uL (1.5-5.0); LYMPH % 5.1 % (24.0-44.0); MEAN CORPUSCULAR HEMOGLOBIN 35.5 pg (27.0-33.0); MEAN CORPUSCULAR HGB CONC 34.7 g/dl (32.0-36.5); MEAN CORPUSCULAR VOLUME 102.5 fl (80.0-96.0); MONO # 0.7 10^3/uL (0.0-0.8); MONO % 6.4 % (2.0-8.0); NEUTROPHILS % 86.4 % (36.0-66.0); PLATELET COUNT, AUTOMATED 145 10^3/uL (150-450); RED BLOOD COUNT 3.66 10^6/uL (4.30-6.10); WHITE BLOOD COUNT 10.5 10^3/uL (4.0-10.0)
[2022-03-10 06:38] LABS: BLOOD UREA NITROGEN 21 MG/DL (7-18); CALCIUM LEVEL 8.8 MG/DL (8.8-10.2); CARBON DIOXIDE LEVEL 26 MEQ/L (21-32); CHLORIDE LEVEL 100 MEQ/L (98-107); CREATININE FOR GFR 1.02 MG/DL (0.70-1.30); GLOMERULAR FILTRATION RATE > 60.0 (>35); GLUCOSE, FASTING 120 MG/DL (70-100); MAGNESIUM LEVEL 2.5 MG/DL (1.8-2.4); POTASSIUM SERUM 4.9 MEQ/L (3.5-5.1); SODIUM LEVEL 130 MEQ/L (136-145)
[2022-03-10 08:00] VITALS: BP 126/72
[2022-03-10] MEDS: MIRALAX *UNIT DOSE* 17GM PACKET PO SCH (09:00)
[2022-03-10] MEDS: DOCUSATE SODIUM 100MG CAPSULE PO SCH ×2 (09:00→20:20)
[2022-03-10] MEDS: predniSONE 10 MG TAB PO SCH ×2 (09:17→12:06)
[2022-03-10] MEDS: LACTOBACILLUS ACIDOPHILUS CAP (BACID) PO SCH (09:17)
[2022-03-10] MEDS: PANTOPRAZOLE 20 MG TAB PO SCH (09:25)
[2022-03-10] MEDS ORDERED: TOLVAPTAN 15 MG TAB (SAMSCA) PO ONE (11:00)
[2022-03-10 12:03] VITALS: BP 152/96
[2022-03-10] MEDS: ATORVASTATIN 20 MG TAB PO SCH (12:06)
[2022-03-10 14:48] LABS: APPEARANCE, URINE MANUAL CLEAR (CLEAR); COLOR, URINE MANUAL LT YELLOW (YELLOW); PH,URINE MAN 7.5 UNITS (5.0 - 7.0); SPECIFIC GRAVITY,URINE MANUAL 1.015 (1.002-1.035)
[2022-03-10 14:49] LABS: BILIRUBIN, URINE MANUAL NEGATIVE (NEGATIVE); BLOOD URINE MANUAL NEGATIVE (NEGATIVE); GLUCOSE, URINE (UA) MANUAL TRACE(50 MG/DL) mg/dL (NEGATIVE); KETONE, URINE MANUAL NEGATIVE (NEGATIVE); LEUKOCYTE ESTERASE, URINE MAN NEGATIVE (NEGATIVE); NITRITE, URINE MANUAL NEGATIVE (NEGATIVE); PROTEIN, URINE MANUAL NEGATIVE (NEGATIVE); UROBILINOGEN, URINE MANUAL NORMAL (NORMAL)
[2022-03-10 15:53] VITALS: BP 130/78
[2022-03-10 17:02] LABS: BLOOD UREA NITROGEN 19 MG/DL (7-18); CALCIUM LEVEL 9.1 MG/DL (8.8-10.2); CARBON DIOXIDE LEVEL 31 MEQ/L (21-32); CHLORIDE LEVEL 101 MEQ/L (98-107); CREATININE FOR GFR 0.94 MG/DL (0.70-1.30); GLOMERULAR FILTRATION RATE > 60.0 (>35); GLUCOSE, FASTING 132 MG/DL (70-100); POTASSIUM SERUM 4.7 MEQ/L (3.5-5.1); SODIUM LEVEL 135 MEQ/L (136-145)
[2022-03-10 20:00] VITALS: BP 120/73
[2022-03-10] MEDS: ALFUZOSIN 10 MG PO SCH (20:43)
[2022-03-11] VITALS: BP 114/72
[2022-03-11 04:00] VITALS: BP 121/76
[2022-03-11 05:09] LABS: BASO % 0.3 % (0.0-1.0); EOS % 0.2 % (0.0-3.0); HEMATOCRIT 39.2 % (42.0-52.0); HEMOGLOBIN 12.8 g/dl (13.5-17.5); LYMPH # 1.1 10^3/uL (1.5-5.0); LYMPH % 9.9 % (24.0-44.0); MEAN CORPUSCULAR HEMOGLOBIN 34.2 pg (27.0-33.0); MEAN CORPUSCULAR HGB CONC 32.7 g/dl (32.0-36.5); MEAN CORPUSCULAR VOLUME 104.8 fl (80.0-96.0); MONO % 8.5 % (2.0-8.0); NEUTROPHILS % 79.4 % (36.0-66.0); PLATELET COUNT, AUTOMATED 152 10^3/uL (150-450); RED BLOOD COUNT 3.74 10^6/uL (4.30-6.10); WHITE BLOOD COUNT 11.3 10^3/uL (4.0-10.0)
[2022-03-11 06:04] LABS: BLOOD UREA NITROGEN 17 MG/DL (7-18); CALCIUM LEVEL 9.2 MG/DL (8.8-10.2); CARBON DIOXIDE LEVEL 31 MEQ/L (21-32); CHLORIDE LEVEL 103 MEQ/L (98-107); CREATININE FOR GFR 0.93 MG/DL (0.70-1.30); GLOMERULAR FILTRATION RATE > 60.0 (>35); GLUCOSE, FASTING 108 MG/DL (70-100); MAGNESIUM LEVEL 2.2 MG/DL (1.8-2.4); POTASSIUM SERUM 4.5 MEQ/L (3.5-5.1); SODIUM LEVEL 138 MEQ/L (136-145)
[2022-03-11 08:00] VITALS: BP 105/65
[2022-03-11] MEDS: predniSONE 10 MG TAB PO SCH ×2 (08:55→12:31)
[2022-03-11] MEDS: LACTOBACILLUS ACIDOPHILUS CAP (BACID) PO SCH (08:55)
[2022-03-11] MEDS: PANTOPRAZOLE 20 MG TAB PO SCH (08:56)
[2022-03-11] MEDS: DOCUSATE SODIUM 100MG CAPSULE PO SCH (08:57)
[2022-03-11] MEDS: MIRALAX *UNIT DOSE* 17GM PACKET PO SCH (08:57)
[2022-03-11] MEDS ORDERED: FUROSEMIDE 40 MG TAB PO SCH (10:10)
[2022-03-11 11:59] VITALS: BP 99/69
[2022-03-11] MEDS: ATORVASTATIN 20 MG TAB PO SCH (12:31)
[2022-03-11 13:11] LABS: FOLATE 6.3 NG/ML (>5.4)
[2022-03-11] MEDS ORDERED: MIRA1POW3 PO (14:56)
[2022-03-11] MEDS ORDERED: PANT20TA6 PO (14:56)
[2022-03-11] MEDS ORDERED: PRED10TA2 PO (14:56)
[2022-03-11] MEDS ORDERED: FURO40TA2 PO (14:56)
[2022-03-11 15:30] VITALS: BP 111/77
[2022-03-11 15:33] VITALS: BP 111/77
== END 2022-03-11 16:40 | disposition home health service (06) | DRG 641 ==
LOC: M PCU 18:09
PROVIDERS: ADMIT Internal Medicine; ATTEND Internal Medicine
DX: E87.1 Hypo-osmolality and hyponatremia (principal); I47.2 Ventricular tachycardia; I50.32 Chronic diastolic (congestive) heart failure; J96.11 Chronic respiratory failure with hypoxia; K92.1 Melena; I13.0 Hypertensive heart and chronic kidney disease with heart failure and stage 1 through stage 4 chronic kidney disease, or unspecified chronic kidney disease; G93.40 Encephalopathy, unspecified; D72.829 Elevated white blood cell count, unspecified; I27.20 Pulmonary hypertension, unspecified; R53.1 Weakness; Z66 Do not resuscitate; J84.10 Pulmonary fibrosis, unspecified; Z99.81 Dependence on supplemental oxygen; I25.10 Atherosclerotic heart disease of native coronary artery without angina pectoris; Z95.5 Presence of coronary angioplasty implant and graft; F03.90 Unspecified dementia, unspecified severity, without behavioral disturbance, psychotic disturbance, mood disturbance, and anxiety; Z90.49 Acquired absence of other specified parts of digestive tract; Z87.891 Personal history of nicotine dependence; Z79.82 Long term (current) use of aspirin; Z79.52 Long term (current) use of systemic steroids; Z79.899 Other long term (current) drug therapy; Z88.1 Allergy status to other antibiotic agents; Z88.2 Allergy status to sulfonamides; Z88.8 Allergy status to other drugs, medicaments and biological substances; R31.9 Hematuria, unspecified; R14.2 Eructation; K59.00 Constipation, unspecified; M79.604 Pain in right leg; Z85.46 Personal history of malignant neoplasm of prostate; N40.0 Benign prostatic hyperplasia without lower urinary tract symptoms; E78.5 Hyperlipidemia, unspecified; N18.30 Chronic kidney disease, stage 3 unspecified

== ENCOUNTER → 2022-03-18 | Outpatient (REF) | payer MEDICARE, OTHER ==
[~2022-03-18] MED LIST changes: +FURO40TA2 PO; +MIRA1POW3 PO; +PANT20TA6 PO; +SIME125T PO
== END ==
LOC: M LAB REF 16:17
PROVIDERS: ATTEND Physician Assistant Medical
DX: R10.9 Unspecified abdominal pain (principal)

== ENCOUNTER 2022-06-28 12:45 | Inpatient (IN) | payer MEDICARE, OTHER ==
[~2022-06-28] VITALS: Ht 177.8 cm; Wt 70.6 kg
[~2022-06-28 12:45] MED LIST changes: +CLOP75TA99 PO; -PLAV1TAB2 PO
[2022-06-28 13:38] LABS: BASO % 0.3 % (0.0-1.0); EOS # 0.1 10^3/uL (0.0-0.5); EOS % 1.1 % (0.0-3.0); HEMATOCRIT 43.4 % (42.0-52.0); HEMOGLOBIN 14.3 g/dl (13.5-17.5); LYMPH % 11.1 % (24.0-44.0); MEAN CORPUSCULAR HEMOGLOBIN 34.9 pg (27.0-33.0); MEAN CORPUSCULAR HGB CONC 32.9 g/dl (32.0-36.5); MEAN CORPUSCULAR VOLUME 105.9 fl (80.0-96.0); MONO # 1.1 10^3/uL (0.0-0.8); MONO % 12.8 % (2.0-8.0); NEUTROPHILS # 6.5 10^3/uL (1.5-8.5); NEUTROPHILS % 73.8 % (36.0-66.0); PLATELET COUNT, AUTOMATED 124 10^3/uL (150-450); WHITE BLOOD COUNT 8.8 10^3/uL (4.0-10.0)
[2022-06-28 14:03] LABS: BILIRUBIN,DIRECT 0.7 MG/DL (<0.4)
[2022-06-28 14:04] LABS: ALBUMIN 3.3 G/DL (3.2-5.2); ALKALINE PHOSPHATASE 99 U/L (46-116); ALT/SGPT 57 U/L (7.0-40); AST/SGOT 22 U/L (<34); BILIRUBIN,TOTAL 2.1 MG/DL (0.3-1.2); BLOOD UREA NITROGEN 22 MG/DL (9-23); CARBON DIOXIDE LEVEL 32 MMOL/L (20-31); CHLORIDE LEVEL 95 MMOL/L (98-107); CK-MB VALUE MASS 1.4 NG/ML (<3.6); CREATININE FOR GFR 0.99 MG/DL (0.70-1.30); GLOMERULAR FILTRATION RATE > 60.0 (>35); GLUCOSE, FASTING 108 MG/DL (74-106); POTASSIUM SERUM 3.4 MMOL/L (3.5-5.1); SODIUM LEVEL 136 MMOL/L (136-145); TOTAL PROTEIN 6.6 G/DL (5.7-8.2)
[2022-06-28 14:06] LABS: THYROID STIMULATING HORMONE 2.729 uIU/ML (0.55-4.78); THYROXINE (T4) 7.6 UG/DL (4.5-10.9)
[2022-06-28 14:22] LABS: CPK CREATINE PHOSPHOKINASE 32 U/L (46-171); MB/CK RELATIVE INDEX 4.37 (< OR =4)
[2022-06-28] MEDS ORDERED: ISOVUE-370 76% 100ML VIAL As Ordered ONE (14:33)
[2022-06-28] MEDS ORDERED: ATROPINE SULFATE 1% OP SOLN 2 ML BTL SL PRN (17:10)
[2022-06-28] MEDS ORDERED: HYOSCYAMINE SULFATE 0.125 MG SUBL TABLET PO PRN (17:10)
[2022-06-28] MEDS ORDERED: BISACODYL 10 MG SUPP PR PRN (17:10)
[2022-06-28] MEDS ORDERED: ONDANSETRON 4MG 2ML VIAL IV PRN (17:10)
[2022-06-28] MEDS ORDERED: MORPHINE 10MG/0.5ML ORAL CONCENTRATE SOLUTION U/D SL PRN (17:10)
[2022-06-28] MEDS ORDERED: MORPHINE 2 MG/ML 1ML VIAL IV PRN (17:10)
[2022-06-28] MEDS ORDERED: ONDANSETRON 4MG ORAL DISINTEGRATING TAB PO PRN (17:10)
[2022-06-28] MEDS ORDERED: LORazepam 2 MG/ML VIAL IV PRN (17:10)
[2022-06-28] MEDS ORDERED: IPRATROPIUM 0.02% SOLN 0.5MG 2.5ML NEB NEB PRN (18:25)
[2022-06-28 21:46] VITALS: BP 121/77
[2022-06-29] MEDS ORDERED: FLUBLOK(EGG FREE)(QUAD)INFLUENZA VACC 0.5ML SYRINGE 18YRS & OLDER IM.IMMUN ONE (09:00)
[2022-06-29] MEDS ORDERED: LACTULOSE 20 GM/30 ML SYRUP UD PO ONE (18:10)
[2022-06-29] MEDS ORDERED: SENNA 8.6 MG TAB (SENOKOT) PO PRN (18:10)
[2022-06-29] MEDS ORDERED: MIRALAX *UNIT DOSE* 17GM PACKET PO PRN (18:10)
[2022-07-01] MEDS ORDERED: ATIV1TAB10 PO (08:31)
[2022-07-01] MEDS ORDERED: HYOS125TA PO (08:31)
[2022-07-01] MEDS ORDERED: MORP1SOL5 PO (08:31)
[2022-07-01] MEDS ORDERED: LACT10SO3 PO (08:33)
== END 2022-07-01 13:33 | disposition hospice, home (50) | DRG 951 ==
LOC: M ED 12:45 → EDBD 12:45 → M ED INP 17:10 → ENRESERV 19:27 → M MSPAV 22:10
PROVIDERS: ADMIT Internal Medicine; ATTEND Internal Medicine
DX: Z51.5 Encounter for palliative care (principal); J96.01 Acute respiratory failure with hypoxia; G93.41 Metabolic encephalopathy; I50.32 Chronic diastolic (congestive) heart failure; I27.20 Pulmonary hypertension, unspecified; J84.10 Pulmonary fibrosis, unspecified; I25.10 Atherosclerotic heart disease of native coronary artery without angina pectoris; G47.00 Insomnia, unspecified; F41.9 Anxiety disorder, unspecified; F32.A Depression, unspecified; Z87.891 Personal history of nicotine dependence; I49.9 Cardiac arrhythmia, unspecified; K59.09 Other constipation; Z66 Do not resuscitate; Z79.82 Long term (current) use of aspirin; R00.0 Tachycardia, unspecified; Z79.899 Other long term (current) drug therapy; Z88.1 Allergy status to other antibiotic agents; Z88.2 Allergy status to sulfonamides; Z88.8 Allergy status to other drugs, medicaments and biological substances